=== PATIENT | female | born 1970 | race Caucasian/White ===

== ENCOUNTER 2021-03-22 14:37 | Emergency (ER) | payer OTHER, SELFPAY ==
[2021-03-22 15:03] VITALS: BP 153/90; PULSE 75; RESP 16; TEMP 37; O2SAT 97; BMI 25.4
--- NOTE | 2021-03-22 15:22 | ED.PSYCH ---
HPI - Psych General Chief Complaint: Psychiatric Symptoms Stated Complaint: Veritgo, Anxiety, SI, Slow Thinking and Speech Time Seen by Provider: 03/22/21 15:21 Source: patient and family Mode of arrival: Ambulatory Limitations: no limitations History of Present Illness HPI Narrative: Patient is a 50-year-old female who presents with a variety of complaints today. She has had mild vertigo ongoing for the last 3 weeks. She had a previous episode about 2 years ago. She says this episode started 3 weeks ago when she was in the garden. It is certainly worse when she turns her head. She went to physical therapy yesterday where they did an [place]a maneuver she thinks it helped a little. She does not take any medication for it because she is afraid of slowing her cognition. She thinks that the Paxil she is taking is interfering with her Related Data Home Medications Medication Instructions Recorded Confirmed levothyroxine 137 mcg tablet 112 mcg PO DAILY tab 08/07/20 03/07/21 calcium carbonate 200 mg calcium 200 mg PO DAILY tab 10/15/20 03/07/21 (500 mg) chewable tablet cholecalciferol (vitamin D3) 25 25 mcg PO DAILY 01/30/21 03/07/21 mcg (1,000 unit) capsule fluticasone propionate 50 1 spray INTRANASAL DAILY 01/30/21 03/07/21 mcg/actuation nasal spray,suspension multivitamin 1 tab PO DAILY 01/30/21 03/07/21 omega-3 fatty acids 1,000 mg 1,000 mg PO DAILY 01/30/21 03/07/21 capsule Previous Rx's Medication Instructions Recorded paroxetine HCl 10 mg tablet 10 mg PO QDAY #90 tab 07/29/20 bupropion HCl 100 mg tablet,12 hr 100 mg PO QAM #90 tab 10/25/20 sustained-release lamotrigine 25 mg tablet 50 mg PO DAILY #180 tab 10/25/20 zolpidem 5 mg tablet See Rx Instructions PO BEDTIME PRN 10/25/20 #180 tab MDD 10 lithium carbonate 300 mg capsule 300 mg PO DAILY #90 cap 01/30/21 lithium carbonate 150 mg capsule 300 mg PO BEDTIME #90 cap 02/11/21 Allergies Allergy/AdvReac Type Severity Reaction Status Date / Time No Known Drug Allergies Allergy Verified 03/07/21 08:47 Review of Systems Review of Systems ROS Unobtainable: All systems reviewed & are unremarkable except as noted in HPI and below Constitutional Constitutional: Denies chills, Denies fever(s), Denies lethargy and Denies weakness Eyes Eyes: Denies blurry vision and Denies diplopia ENT Ears, Nose, Mouth, and Throat: Denies change in voice, Reports vertigo, Reports dizziness, Denies neck pain and Denies sore throat Gastrointestinal Gastrointestinal: Denies abdominal pain, Denies change in bowel habits, Denies diarrhea, Denies nausea and Denies vomiting Musculoskeletal Musculoskeletal: Denies myalgias and Denies neck pain Neurologic Neurologic: Reports confusion, Reports vertigo, Reports dizziness, Reports memory loss and Denies weakness Psychiatric Psychiatric: Reports anxiety, Reports confusion, Reports memory loss and Reports panic attacks Patient History Medical History Hx of hiatal hernia Hypothyroid Iron deficiency anemia Surgical History History of Social History marital status: household members: spouse and children Smoking Status: Former smoker alcohol intake: current substance use type: does not use Smoking Status: Former smoker alcohol intake frequency: holidays/special occasions only Substance Use Type: does not use Exam Initial Vital Signs Initial Vital Signs: Vital Signs Temperature 98.6 F 03/22/21 15:03 Pulse Rate 75 03/22/21 15:03 Respiratory Rate 16 03/22/21 15:03 Blood Pressure 153/90 H 03/22/21 15:03 Pulse Oximetry 97 03/22/21 15:03 GENERAL: Tearful 50-year-old female HEENT: Head atraumatic,EOMI, pupils reactive, face symmetric, moist mucous membranes CARDIOVASCULAR: Regular rate and rhythm without murmurs, rubs or gallops. RESPIRATORY: Breath sounds equal bilaterally, no wheezes rales or rhonchi. ABDOMEN: Soft, nontender. Normoactive bowel sounds all 4 quadrants. No guarding or rebound. EXTREMITIES: Normal range of motion, no clubbing or edema. Neurovascularly intact NEUROLOGICAL: Alert and oriented x4.Normal gait and speech. Cranial nerves II through XII grossly intact. Good fvccea-qy-kpod, good kyha-uc-mcou, strength equal bilaterally, no dysarthria or aphasia, sensation in tact to soft touch bilaterally, no visual changes, no facial droop. Difficulty with 3 object memory test, able to count by sevens SKIN: Warm, dry, no laceration, no petechiae, no rashes or lesions. Scores NIH Stroke Scale Level of Conciousness: Alert, keenly responsive Ask month/age: Answers both questions correctly. Open/close eyes, close hand: Performs both tasks correctly Best gaze horizontal: Normal Visual izquierdo: No visual loss Facial palsy: Normal symetrical movement Left arm drift: No drift for full 10 sec Right arm drift: No drift for full 10 sec Left leg drift: No drift for full 5 sec Right leg drift: No drift for full 5 sec Limb ataxia: Absent Sensory on face/arms/legs: Normal, no sensory loss Best language: No aphasia, normal Dysarthria: Normal Extinction or inattention: No abnormality Total NIH Stroke scale score: 0 Course Orders Ordered: ED Orders 03/22/21 14:42 Consult to TOOL TECHNICIAN - Internist Medical Doctor Md Stat 03/22/21 15:48 CT angio head and neck Stat 03/22/21 16:02 Complete Blood Count AUTO DIFF Stat Comprehensive Metabolic Panel Stat Vital Signs Vital signs: Vital Signs - 8 hr 03/22/21 15:03 03/22/21 17:54 Temperature 98.6 F Pulse Rate 75 77 Respiratory Rate 16 16 Blood Pressure 153/90 H 140/90 Pulse Oximetry 97 100 MDM - Psych Lab Data Attestation: I reviewed the patient's lab results. Result diagrams: 03/22/21 16:02 03/22/21 16:02 Labs: Lab Results 03/22/21 03/22/21 Range/Units 16:02 16:02 WBC 9.0 (4.5-11.0) X10^3/uL RBC 4.77 (4.0-5.2) X10^6/uL Hgb 14.6 (12.0-16.0) g/dL Hct 42.3 (36-46) % MCV 88.6 (80-100) fL MCH 30.6 (26-34) PG MCHC 34.5 (30-36) % RDW 12.8 (11.6-14.8) % Plt Count 355 (150-400) X10^3/uL Neut % (Auto) 79.9 H (50-75) % Lymph % (Auto) 13.4 L (25-40) % [place] % (Auto) 5.3 (3-14) % Eos % (Auto) 1.0 L (2-4) % Baso % (Auto) 0.4 (0-2) % Neut # (Auto) 7200 H (9792-6073) /uL Lymph # (Auto) 1200 (1491-1986) /uL [place] # (Auto) 500 (0-900) /uL Eos # (Auto) 100 (0-450) /uL Baso # (Auto) 0 (0-100) /uL Sodium 141 (137-145) mmol/L Potassium 3.5 (3.4-5.1) mmol/L Chloride 106 (98-107) mmol/L Carbon Dioxide 25 (22-32) mmol/L BUN 6 L (7-17) mg/dL Creatinine 0.56 (0.52-1.04) mg/dL Estimated GFR > 60.0 (>60) mL/min BUN/Creatinine Ratio 10.7 (6-22) Glucose 135 H (70-100) mg/dL Calcium 9.5 (8.4-10.2) mg/dL Total Bilirubin 0.3 (0.2-1.3) mg/dL AST 36 (14-36) IU/L ALT 22 (<35) IU/L Alkaline Phosphatase 76 (38-126) U/L Total Protein 7.6 (6.3-8.2) g/dL Albumin 4.7 (3.5-5.0) g/dL Globulin 2.9 (1.7-4.1) g/dL Albumin/Globulin Ratio 1.6 (1.0-2.8) Imaging Data CTA - brain/neck: Radiologist's Impression: PROCEDURE: CT ANGIO HEAD AND NECK INDICATIONS: persistant dizzy TECHNIQUE: Pre-contrast 4.5 mm thick sections acquired from the foramen magnum to the vertex. After the administration of intravenous contrast, 1 mm thick sections acquired from the aortic arch through the [place] of [place]. Post-contrast 4.5 mm thick sections then re-acquired from the foramen magnum to the vertex. 3-dimensional gmhcmiq-ykdyabyqr-qatsaqfzqj (MIP) and/or volume rendering reformats were acquired of the central intracranial vasculature and neck separately. COMPARISON: None. FINDINGS: Image quality: Excellent. BRAIN: CSF spaces: Ventricles are normal in size and shape. Basal cisterns are patent. No extra-axial fluid collections. Brain: No midline shift. No intracranial bleeds or masses. Valle-white matter interface appears intact. Skull and face: Calvarium and facial bones appear intact, without suspicious lesions. Orbits appear normal. Sinuses: Mild mucosal thickening of the right greater than left maxillary sinuses. HEAD CT ANGIOGRAPHY: Anterior circulation: Intracranial internal carotid arteries are normal in size and flow. The flow within the paired anterior cerebral arteries is normal and symmetric. The flow within the middle cerebral arteries is normal and symmetric. The anterior communicating artery is seen. No aneurysms are seen. Posterior circulation: Visualized portions of the vertebral arteries demonstrate normal caliber, and join to form a normal appearing basilar artery. Flow within the posterior cerebral arteries is normal and symmetric. No aneurysms are seen. NECK CT ANGIOGRAPHY: Carotid system: The great vessels demonstrate a conventional anatomy as they arise from the aortic arch. The origins of the common carotid arteries appear patent. The common carotid arteries demonstrate normal caliber and courses. The bifurcation regions are both widely patent. There is very mild calcification and noncalcified atheromatous plaque at the proximal left internal carotid artery without evidence of flow-limiting stenosis, occlusion or other vascular abnormality. The internal carotid arteries demonstrate normal calibers and courses. Posterior circulation: The origins of the vertebral arteries both appear widely patent. The more superior extracranial portions of both vertebral arteries also demonstrate normal courses and calibers. They join to form a normal appearing basilar artery. Soft tissues: Visualized neck soft tissues demonstrate no suspicious abnormalities. Bones: No suspicious bony lesions. Reversal of the normal cervical lordosis. Multilevel degenerative changes of the spine. There is at least mild intervertebral disc space loss at C5-C6 and moderate intervertebral disc space loss at C6-C7. There is endplate degenerative changes and uncovertebral joint hypertrophy. There is mild spinal canal stenosis posterior to C5-C6 and C6-C7. There is mild neural foraminal stenosis at these levels. Visualized cervical spine appears normally aligned. IMPRESSION: No acute intracranial abnormality. No evidence of flow-limiting stenosis, occlusion, or other suspicious vascular abnormality within the intracranial or cervical vasculature. Moderate multilevel cervical spondylosis worse at C5-C6 and C6-C7. Dictated by: Romario Ngo D.O. on 03/22/2021 at 16:16 MDM Narrative Medical decision making narrative: Patient is extremely tearful and quite worried about her cognition. She feels like her medication may be causing her cognitive impairment she is extremely worried about early dementia. She is adamant about not taking any medication for her vertigo. She seems to be be tolerating the vertigo. She states that she has not had CT or imaging of her brain for any episodes of her vertigo. She is agreeable to CTs today but does not want medication. She was able to lay flat for CT angio with trochlea was negative. This time patient has calm down. I recommend that she continue tapering off her Paxil and speaking with tila arredondo who is managing that about different medication. She may need further testing in regards to have the dementia she is worried about or it may be medication related. Recommend that she follow up with ENT for chronic ongoing vertigo. Discharge Plan Departure Patient Disposition: Home Clinical Impression: Vertigo Instructions: DI for Vertigo Activity Restrictions/Additional Instructions: *You have been diagnosed with vertigo *What to do: At this time I recommend you seen ear nose and throat doctor for your ongoing vertigo. You will need to talk with her psychiatrist in regards to the Paxil this does need to be tapered off slowly over a couple of weeks. *Continue to take medications as directed *Follow up with your primary care provider in 2-3 days *Return to ER if you should have worsening dizziness, falling, weakness, numbness, tingling, persistent vomiting or any new, worsening or concerning symptoms Prescriptions: No Action zolpidem 5 mg tablet See Rx Instructions PO BEDTIME MDD 10 PRN (Reason: insomnia) Qty: 180 RF: 1 bupropion HCl [Wellbutrin SR] 100 mg tablet sustained-release 12 hr 100 mg PO QAM Qty: 90 RF: 1 lamotrigine [Lamictal] 25 mg tablet 50 mg PO DAILY Qty: 180 RF: 1 fluticasone propionate [Flonase Allergy Relief] 50 mcg/actuation spray,suspension 1 spray intranasal DAILY RF: 0 multivitamin Tablet 1 tab PO DAILY RF: 0 omega-3 fatty acids [Fish Oil Concentrate] 1,000 mg capsule 1,000 mg PO DAILY RF: 0 cholecalciferol (vitamin D3) 25 mcg (1,000 unit) capsule 25 mcg PO DAILY RF: 0 lithium carbonate 300 mg capsule 300 mg PO DAILY Qty: 90 RF: 1 Hold Instructions: trial of dose change levothyroxine [Synthroid] 137 mcg tablet 112 mcg PO DAILY RF: 0 paroxetine HCl [Paxil] 10 mg tablet 10 mg PO QDAY Qty: 90 RF: 2 lithium carbonate 150 mg capsule 300 mg PO BEDTIME Qty: 90 RF: 0 calcium carbonate [Tums] 200 mg calcium (500 mg) tablet,chewable 200 mg PO DAILY RF: 0 Referrals: Bj Pop MD [Physician] - Tennille Herron ARNP [Advanced Customizer] - Laci Bonilla MD [Primary Care Provider] -
--- NOTE | 2021-03-22 15:44 | PC.NURSE ---
Pt has multiple concerns which include vertigo, medication tapering, and most concerning to her a slowing of her mentation. Pt is slow to speak but is A&Ox3. Pt does not wish for medications to help her vertigo symptoms
--- NOTE | 2021-03-22 15:48 | DI.CT.S_ITS ---
PROCEDURE: CT ANGIO HEAD AND NECK INDICATIONS: persistant dizzy TECHNIQUE: Pre-contrast 4.5 mm thick sections acquired from the foramen magnum to the vertex. After the administration of intravenous contrast, 1 mm thick sections acquired from the aortic arch through the [place] of [place]. Post-contrast 4.5 mm thick sections then re-acquired from the foramen magnum to the vertex. 3-dimensional cknzmgq-vxdjxoxjx-qpyqpqtlpj (MIP) and/or volume rendering reformats were acquired of the central intracranial vasculature and neck separately. COMPARISON: None. FINDINGS: Image quality: Excellent. BRAIN: CSF spaces: Ventricles are normal in size and shape. Basal cisterns are patent. No extra-axial fluid collections. Brain: No midline shift. No intracranial bleeds or masses. Valle-white matter interface appears intact. Skull and face: Calvarium and facial bones appear intact, without suspicious lesions. Orbits appear normal. Sinuses: Mild mucosal thickening of the right greater than left maxillary sinuses. HEAD CT ANGIOGRAPHY: Anterior circulation: Intracranial internal carotid arteries are normal in size and flow. The flow within the paired anterior cerebral arteries is normal and symmetric. The flow within the middle cerebral arteries is normal and symmetric. The anterior communicating artery is seen. No aneurysms are seen. Posterior circulation: Visualized portions of the vertebral arteries demonstrate normal caliber, and join to form a normal appearing basilar artery. Flow within the posterior cerebral arteries is normal and symmetric. No aneurysms are seen. NECK CT ANGIOGRAPHY: Carotid system: The great vessels demonstrate a conventional anatomy as they arise from the aortic arch. The origins of the common carotid arteries appear patent. The common carotid arteries demonstrate normal caliber and courses. The bifurcation regions are both widely patent. There is very mild calcification and noncalcified atheromatous plaque at the proximal left internal carotid artery without evidence of flow-limiting stenosis, occlusion or other vascular abnormality. The internal carotid arteries demonstrate normal calibers and courses. Posterior circulation: The origins of the vertebral arteries both appear widely patent. The more superior extracranial portions of both vertebral arteries also demonstrate normal courses and calibers. They join to form a normal appearing basilar artery. Soft tissues: Visualized neck soft tissues demonstrate no suspicious abnormalities. Bones: No suspicious bony lesions. Reversal of the normal cervical lordosis. Multilevel degenerative changes of the spine. There is at least mild intervertebral disc space loss at C5-C6 and moderate intervertebral disc space loss at C6-C7. There is endplate degenerative changes and uncovertebral joint hypertrophy. There is mild spinal canal stenosis posterior to C5-C6 and C6-C7. There is mild neural foraminal stenosis at these levels. Visualized cervical spine appears normally aligned. IMPRESSION: No acute intracranial abnormality. No evidence of flow-limiting stenosis, occlusion, or other suspicious vascular abnormality within the intracranial or cervical vasculature. Moderate multilevel cervical spondylosis worse at C5-C6 and C6-C7. Dictated by: Romario Ngo D.O. on 03/22/2021 at 16:16 Approved by: Romario Ngo D.O. on 03/22/2021 at 16:25
[2021-03-22 16:26] LABS: Add Manual Diff / Slide Review NO; Basophils Absolute Auto 0 /uL (0-100); Basophils Percent Auto 0.4 % (0-2); Eosinophils Absolute Auto 100 /uL (0-450); Hematocrit 42.3 % (36-46); Hemoglobin 14.6 g/dL (12.0-16.0); Lymphocytes Absolute Auto 1200 /uL (1100-4500); Lymphocytes Percent Auto 13.4 % (25-40); Mean Corpuscular HGB Conc 34.5 % (30-36); Mean Corpuscular Hemoglobin 30.6 PG (26-34); Mean Corpuscular Volume 88.6 fL (80-100); Monocytes Absolute Auto 500 /uL (0-900); Monocytes Percent Auto 5.3 % (3-14); Neutrophils Absolute Auto 7200 /uL (1500-7000); Neutrophils Percent Auto 79.9 % (50-75); Platelet Count 355 X10^3/uL (150-400); Red Blood Cell Count 4.77 X10^6/uL (4.0-5.2); Red Cell Distribution Width 12.8 % (11.6-14.8)
[2021-03-22 16:27] LABS: Alanine Aminotransferase 22 IU/L (<35); Albumin 4.7 g/dL (3.5-5.0); Albumin Globulin Ratio 1.6 (1.0-2.8); Alkaline Phosphatase 76 U/L (38-126); Aspartate Aminotransferase 36 IU/L (14-36); BUN Creatinine Ratio 10.7 (6-22); Bilirubin Total 0.3 mg/dL (0.2-1.3); Blood Urea Nitrogen 6 mg/dL (7-17); Calcium 9.5 mg/dL (8.4-10.2); Carbon Dioxide 25 mmol/L (22-32); Chloride 106 mmol/L (98-107); Estimated Glomerular Filt Rate > 60.0 mL/min (>60); Globulin 2.9 g/dL (1.7-4.1); Glucose 135 mg/dL (70-100); HEMOLYSIS 31 (0-50); Potassium 3.5 mmol/L (3.4-5.1); Sodium 141 mmol/L (137-145); Total Protein 7.6 g/dL (6.3-8.2)
--- NOTE | 2021-03-22 17:44 | CM.SWNOTE ---
LIQUOR BRIDGE OPERATOR HELPER note LIQUOR BRIDGE OPERATOR HELPER consult placed during triage. LIQUOR BRIDGE OPERATOR HELPER staffed with ED Provider Dr. Norton and it was decided that LIQUOR BRIDGE OPERATOR HELPER consult is not needed for patient during this visit. OSCAR Lemus
[2021-03-22 17:54] VITALS: BP 140/90; PULSE 77; RESP 16; O2SAT 100
== END 2021-03-22 17:51 | disposition home or self-care (01) ==
PROVIDERS: Emergency Medicine; Emergency Provider Emergency Medicine; PCP Family Medicine
DX: R42 Dizziness and giddiness (principal); Z79.01 Long term (current) use of anticoagulants
CPT/HCPCS: 36415; 70496; 70498; 80053; 85025; 99284; Q9967

== ENCOUNTER 2025-03-29 17:18 | Observation (INO) | payer OTHER, SELFPAY ==
[2025-03-29] VITALS (18 sets, daily range): BP systolic 122–156; BP diastolic 60–94; PULSE 41–115; RESP 15–24; TEMP 36.7–37.1; O2SAT 97–100; BMI 25.5; BMI 26.2
--- NOTE | 2025-03-29 17:32 | EKG_ITS ---
[place] [id number] [place] [address] Test Date: 2025-03-29 Pat Name: Brooklyn Rosen Department: [facility] Room: Gender: Female Crab Picker: : [phone] Requested By: Order Number: [id number] Reading MD: Tereso Kraft Measurements Intervals [place] Rate: 78 P: 41 NV: 142 QRS: 57 QRSD: 84 T: 77 QT: 396 QTc: 451 Interpretive Statements Sinus rhythm with frequent premature ventricular complexes in a pattern of bigeminy Electronically Signed On 03-30-2025 19:08:11 PDT by Tereso Kraft
--- NOTE | 2025-03-29 17:35 | DI.RAD.S_ITS ---
PROCEDURE: XR CHEST 1V INDICATIONS: Chest Pain TECHNIQUE: One view of the chest was acquired. COMPARISON: None. FINDINGS: Surgical changes and devices: None. Lungs and pleura: Lungs are clear. No pleural effusions or pneumothorax. Mediastinum: Mediastinal contours appear normal. Heart size is normal. Bones and chest wall: No suspicious bony lesions. Overlying soft tissues appear unremarkable. IMPRESSION: No acute cardiopulmonary abnormality is seen. No focal consolidation. Dictated by: Erik Yost M.D. on 03/29/2025 at 18:42 Approved by: Erik Yost M.D. on 03/29/2025 at 18:42
[2025-03-29 18:26] LABS: Add Manual Diff / Slide Review NO; Basophils Absolute Auto 100 /uL (0-100); Basophils Percent Auto 0.6 % (0-2); Eosinophils Absolute Auto 200 /uL (0-450); Eosinophils Percent Auto 1.7 % (2-4); Hematocrit 40.6 % (36-46); Lymphocytes Absolute Auto 1800 /uL (1100-4500); Lymphocytes Percent Auto 19.4 % (25-40); Mean Corpuscular HGB Conc 34.4 % (30-36); Mean Corpuscular Volume 87.1 fL (80-100); Monocytes Absolute Auto 600 /uL (0-900); Monocytes Percent Auto 6.2 % (3-14); Neutrophils Absolute Auto 6600 /uL (1500-7000); Neutrophils Percent Auto 72.1 % (50-75); Platelet Count 268 X10^3/uL (150-400); Red Blood Cell Count 4.66 X10^6/uL (4.0-5.2); Red Cell Distribution Width 12.3 % (11.6-14.8); White Blood Cell Count 9.2 X10^3/uL (4.5-11.0)
[2025-03-29 18:28] LABS: INR 0.9 (0.9-1.3); Prothrombin Time 10.7 SECONDS (9.4-12.5)
[2025-03-29 18:31] LABS: PTT Partial Thromboplastin Tim 35 SECONDS (25.1-36.5)
[2025-03-29 18:33] LABS: Alanine Aminotransferase 24 IU/L (<35); Albumin 4.2 g/dL (3.5-5.0); Albumin Globulin Ratio 1.5 (1.0-2.8); Alkaline Phosphatase 75 U/L (38-126); Aspartate Aminotransferase 31 IU/L (14-36); BUN Creatinine Ratio 20.3 (6-22); Bilirubin Total 0.5 mg/dL (0.2-1.3); Blood Urea Nitrogen 14 mg/dL (7-17); Carbon Dioxide 23 mmol/L (22-32); Chloride 106 mmol/L (98-107); Creatine Kinase 65 U/L (30-135); Estimated Glomerular Filt Rate > 60 mL/min (>60); Globulin 2.8 g/dL (1.7-4.1); Glucose 122 mg/dL (70-99); HEMOLYSIS 41 (0-50); Lipase 214 U/L (23-300); Magnesium 1.9 mg/dL (1.6-2.3); Potassium 3.9 mmol/L (3.4-5.1); Sodium 139 mmol/L (137-145)
[2025-03-29 18:44] LABS: NT-proBNP (BNP-Adult 18+) 423 pg/mL (<125); Troponin I < 0.012 ng/mL (0.01-0.034)
[2025-03-29 19:34] LABS: Lithium 0.3 mmol/L (0.6-1.2)
--- NOTE | 2025-03-29 20:35 | ED.ARRPALP ---
HPI - Arrhythmia/Palpitations General Chief Complaint: Arrhythmia/Palpitations Stated Complaint: Abnormal EKG, SOB, Heart Flutters Time Seen by Provider: 03/29/25 20:33 Source: patient, RN notes reviewed and old records reviewed Mode of arrival: Ambulatory Limitations: no limitations History of Present Illness HPI narrative: 54-year-old female with psychiatric history on lithium complaint of shortness of breath and palpitations of the heart was seen for bradycardia at would be and with primary care a few weeks ago. Patient states she was had some increased shortness of breath, felt lightheaded she was felt like she might pass out but has not had any syncope. She can feel palpitations frequently and states it is more intense than it was over the last 3 weeks. She states was 1st noticed after an iron infusion her pulse ox was not picking up her heart rate and was found to be having PVCs in a bigeminal rate. She denies any chest pain or pressure. No syncope. No fevers or chills. No abdominal back or flank pain. No nausea or vomiting. No new swelling in extremities. She is on lithium has had her dose decreased, she takes Wellbutrin, Lamictal, Paxil, Ambien Synthroid daily. They have been decreasing some of her medications slowly over time. She did not take any medications for hypertension, dyslipidemia or diabetes. She was had prior C-sections but no other cardiac interventions or surgeries. No allergies to meds. No tobacco, rare alcohol, no recreational drugs. Dr. Aranda is her primary care physician. Patient's primary care is Dr. Heard. Patient has a follow up on May [address] Hoyt with [facility]. Related Data Home Medications Medication Instructions Recorded Confirmed cholecalciferol (vitamin D3) 25 25 mcg PO DAILY 01/30/21 03/30/25 mcg (1,000 unit) capsule fluticasone propionate 50 1 spray intranasal DAILY 01/30/21 03/29/25 mcg/actuation nasal spray,suspension (Flonase Allergy Relief) multivitamin 1 tab PO DAILY 01/30/21 03/30/25 omega-3 fatty acids 1,000 mg 1,000 mg PO DAILY 01/30/21 03/30/25 capsule (Fish Oil Concentrate) levothyroxine 125 mcg capsule 125 mcg PO DAILY 09/24/21 03/29/25 melatonin 1 mg tablet 3 mg PO BEDTIME 12/03/21 03/29/25 Previous Rx's Medication Instructions Recorded bupropion HCl 100 mg tablet,12 hr 50 mg (1/2 x 100 mg) PO DAILY #60 12/21/24 sustained-release ea lamotrigine 25 mg tablet (Lamictal) 50 mg (2 x 25 mg) PO DAILY #180 01/09/25 tabs lithium carbonate 150 mg capsule 150 mg PO QPM #90 caps 01/09/25 lithium carbonate 300 mg capsule 300 mg PO QAM #90 caps 01/09/25 paroxetine HCl 10 mg tablet 10 mg PO DAILY #7 tabs 01/09/25 zolpidem 5 mg tablet 5 mg PO BEDTIME PRN insomnia #90 01/09/25 tabs paroxetine HCl 10 mg/5 mL oral 2.5 mg (1.25 mL) PO DAILY #250 mL 01/12/25 suspension Allergies Allergy/AdvReac Type Severity Reaction Status Date / Time No Known Drug Allergies Allergy Verified 03/29/23 10:54 Review of Systems Review of Systems ROS Unobtainable: All systems reviewed & are unremarkable except as noted in HPI and below Patient History Medical History Hx of hiatal hernia Iron deficiency anemia Hypothyroid Surgical History History of Social History marital status: household members: spouse and children Smoking Status: Never smoker alcohol intake: current substance use type: does not use Smoking Status: Never smoker alcohol intake frequency: holidays/special occasions only Exam Narrative Exam Narrative: GENERAL: Alert and oriented x three, female in mild distress. Patient was seated chair at the bedside in no acute distress. HEENT: Head normocephalic, atraumatic, EOMI, pupils reactive, face symmetric, moist mucous membranes NECK: Supple, full range of motion CARDIOVASCULAR: Patient has a regular but bigeminal beat, rate and rhythm without murmurs, rubs or gallops. No JVD. No edema bilateral lower extremities. RESPIRATORY: Breath sounds equal bilaterally, no wheezes rales or rhonchi. ABDOMEN: Soft, nontender. Normoactive bowel sounds all 4 quadrants. No guarding or rebound, rigidity, no mass : No CVA tenderness EXTREMITIES: Normal range of motion, no clubbing or edema. Neurovascularly intact NEUROLOGICAL: Cranial nerves II through XII grossly intact. Moving all extremities SKIN: Warm, dry, no petechiae, no rashes or lesions. Initial Vital Signs Initial Vital Signs: Vital Signs Temperature 98.7 F 03/29/25 17: Pulse Rate 41 L 03/29/25 17: Respiratory Rate 16 03/29/25 17: Blood Pressure 156/74 H 03/29/25 17:25 Pulse Oximetry 97 03/29/25 17:25 Oxygen Delivery Method Room Air 03/29/25 17:25 Course Orders Ordered: Acetaminophen (Acetaminophen 325 Mg Tablet) 650 mg PO Q6H PRN PRN Reason: Fever/Mild Pain (1-3) Bupropion HCl (Bupropion Sr 100 Mg Tab) 50 mg PO DAILY [facility] Calcium Carbonate (Calcium Carbonate 500 Mg Tab) 500 mg PO TID PRN PRN Reason: Heartburn Diazepam (Diazepam 10 Mg/2 Ml Syringe) 5 mg IV Q6HR PRN PRN Reason: seizure Fish Oil (Fish Oil 1,000 Mg Capsule) 1,000 mg PO DAILY [facility] Fluticasone Propionate (Fluticasone 120 [place]/16 Gm [place].Susp) 1 spray NASAL DAILY [facility] Lamotrigine (Lamotrigine 100 Mg Tablet) 50 mg PO DAILY [facility] Levothyroxine Sodium (Levothyroxine 125 Mcg Tablet) 125 mcg PO 0600 [facility] [place] Carbonate ([place] 150 Mg Ir Capsule) 150 mg PO QPM BRDA [place] Carbonate ([place] 150 Mg Ir Capsule) 300 mg PO DAILY [facility] Melatonin (Melatonin 3 Mg Tablet) 3 mg PO BEDTIME [facility] Last Admin: 03/30/25 01:56 Dose: 3 mg Documented By: Multivitamins (Multivitamin 1 Tablet) 1 tab PO DAILY [facility] Naloxone HCl (Naloxone 0.4 Mg/Ml Vial) 0.2 mg IV Q2MIN PRN PRN Reason: Opiate Reversal Non-Formulary Medication (Paroxetine Hcl) 2.5 mg PO DAILY [facility] Paroxetine HCl (Paroxetine 20 Mg Tablet) 10 mg PO DAILY [facility] Vitamin D (Cholecalciferol (Vitamin D3) 1,000 Unit Tablet) 1,000 unit PO DAILY [facility] Zolpidem Tartrate (Zolpidem 5 Mg Tablet) 5 mg PO BEDTIME PRN PRN Reason: insomnia Last Admin: 03/30/25 01:56 Dose: 5 mg Documented By: YOSSI Discontinued Medications Aspirin (Aspirin 81 Mg Chew Tab) 324 mg PO NOW ONE Stop: 03/29/25 17:36 Last Admin: 03/29/25 18:46 Dose: Not Given Documented By: TANIKA Sodium Chloride (Normal Saline 0.9%) 1,000 mls @ 1,000 mls/hr IV BOLUS ONE Stop: 03/29/25 21:49 Last Infusion: 03/29/25 23:09 Dose: Infused Documented By: Admin: 03/29/25 21:20 Dose: 1,000 mls/hr Documented By: INDIRA Vital Signs Vital signs: Vital Signs - 8 hr 03/29/25 20:00 03/29/25 20:01 03/29/25 20:01 Pulse Rate 106 H 74 Respiratory Rate 22 Blood Pressure 136/64 Pulse Oximetry 98 98 03/29/25 20:30 03/29/25 20:31 03/29/25 20:31 Pulse Rate 97 H 112 H Respiratory Rate Blood Pressure 134/65 Pulse Oximetry 99 99 03/29/25 21:06 03/29/25 21:30 03/29/25 22:00 Pulse Rate 112 H 94 H 95 H Respiratory Rate 16 Blood Pressure Pulse Oximetry 99 100 03/29/25 22:30 Pulse Rate 102 H Respiratory Rate 15 Blood Pressure Pulse Oximetry MDM - Arrhythmia/Palpitations Lab Data 03/29/25 18:14 03/29/25 18:14 Labs: Lab Results 03/29/25 Range/Units 18:14 WBC 9.2 (4.5-11.0) X10^3/uL RBC 4.66 (4.0-5.2) X10^6/uL Hgb 14.0 (12.0-16.0) g/dL Hct 40.6 (36-46) % MCV 87.1 (80-100) fL MCH 30.0 (26-34) PG MCHC 34.4 (30-36) % RDW 12.3 (11.6-14.8) % Plt Count 268 (150-400) X10^3/uL Neut % (Auto) 72.1 (50-75) % Lymph % (Auto) 19.4 L (25-40) % [place] % (Auto) 6.2 (3-14) % Eos % (Auto) 1.7 L (2-4) % Baso % (Auto) 0.6 (0-2) % Neut # (Auto) 6600 (4391-6989) /uL Lymph # (Auto) 1800 (4044-6724) /uL [place] # (Auto) 600 (0-900) /uL Eos # (Auto) 200 (0-450) /uL Baso # (Auto) 100 (0-100) /uL PT 10.7 (9.4-12.5) SECONDS INR 0.9 (0.9-1.3) APTT 35 (25.1-36.5) SECONDS D-Dimer < 215 (<500) ng/ml Sodium 139 (137-145) mmol/L Potassium 3.9 (3.4-5.1) mmol/L Chloride 106 (98-107) mmol/L Carbon Dioxide 23 (22-32) mmol/L BUN 14 (7-17) mg/dL Creatinine 0.69 (0.52-1.04) mg/dL Estimated GFR > 60 (>60) mL/min BUN/Creatinine Ratio 20.3 (6-22) Glucose 122 H (70-99) mg/dL Calcium 9.0 (8.4-10.2) mg/dL Magnesium 1.9 (1.6-2.3) mg/dL Total Bilirubin 0.5 (0.2-1.3) mg/dL AST 31 (14-36) IU/L ALT 24 (<35) IU/L Alkaline Phosphatase 75 (38-126) U/L Total Creatine Kinase 65 (30-135) U/L Troponin I < 0.012 (0.01-0.034) ng/mL NT-Pro-B Natriuret Pep 423 H (<125) pg/mL Total Protein 7.0 (6.3-8.2) g/dL Albumin 4.2 (3.5-5.0) g/dL Globulin 2.8 (1.7-4.1) g/dL Albumin/Globulin Ratio 1.5 (1.0-2.8) Lipase 214 (23-300) U/L TSH 0.842 (0.47-4.68) uIU/mL [place] 0.3 L (0.6-1.2) mmol/L ECG Data Attestation: I personally reviewed and interpreted this ECG as follows: Prior ECG tracings: available for review Interpretation: Sinus rhythm for frequent PVCs almost bigeminal in nature, rate of 78 NE 142 QRS 84 QTC of 451. Patient has prior EKG from 03/05/2025 has similar somewhat appearing pattern although no quite as frequent PVCs but it was almost bigeminal on that 1 as well. MDM Narrative Medical decision making narrative: EKG sinus rhythm frequent PVCs in a bigeminal pattern patient has prior from February of 2025 has a somewhat similar appearance. Labs show normal white count hemoglobin and platelets, coags are normal electrolytes are normal glucose is 122, troponins less than 0.012 with a BNP of 423. [place] level is 0.3 Dimer is negative. TSH is normal Chest x-ray shows no acute process no focal consolidation. Patient has a L of fluids. Spoke with Cardiology, Dr. Weinberg at [id number]: Discussed findings from today patient was frequent bigeminal PVCs and sometimes even some extra beats. He feels it would be appropriate to keep patient for observation for echo telemetry monitoring to evaluate for any myocarditis and if negative can follow up outpatient. Can call to follow up with any additional questions or concerns or if changes on echo. Discussed with the patient she is agreeable for observation. Other than palpitation she was currently asymptomatic. Spoke with Dr. Villanueva, tele hospitalist at [id number], discussed recommendations from Cardiology patient has persistent bigeminal rhythm but also additional extra beats/PVCs. Plan for observation overnight, echo in the morning. Discharge Plan Departure Patient Disposition: Admitted as Observation Clinical Impression: Bigeminal rhythm Admit Date/Time: 03/29/25 22:59 Admit Provider: Danny Villanueva
[2025-03-29 21:03] LABS: D Dimer < 215 ng/ml (<500)
[2025-03-29] MEDS: SODIUM CHLORIDE 0.9% 1,000 ML 1000 ML IV (21:20)
[2025-03-29 21:49] LABS: Thyroid Stimulating Hormone 0.842 uIU/mL (0.47-4.68)
[2025-03-30] MEDS: MELATONIN 3 MG TABLET PO (01:56)
[2025-03-30] MEDS: ZOLPIDEM 5 MG TABLET PO (01:56)
--- NOTE | 2025-03-30 04:26 | PC.ADMIT ---
[email or web address] Admission Note: Admitted at 23:15, transferred by wheelchair from the ED. A/O x 4, Independent in room. Reports palpitations and mild shortness of breath, declines oxygen. Denies chest pain, dizziness, nausea. Spouse present, brought home medications and was instructed to take them down to his car. Patient kept removing tele leads and placing them on her stomach. Meds reconciled, patient reports that she takes 3/4 tab of melatonin and 3/4 tab ambien. Reports that with other medications she cuts the dose in half, quarter tab, or less than quarter tab. Reported to Dr. Villanueva. Echo ordered for morning. The patient,Brooklyn Rosen,54 y/o, was given written information regarding hospital policies, unit procedures and contact persons. Patient's smoking status: Never smoker. Vital Signs - 8 hr 03/29/25 20:30 03/29/25 20:31 03/29/25 20:31 Temperature Pulse Rate 97 H 112 H Respiratory Rate Blood Pressure 134/65 Pulse Oximetry 99 99 Oxygen Delivery Method Oxygen Flow Rate 03/29/25 21:06 03/29/25 21:30 03/29/25 22:00 Temperature Pulse Rate 112 H 94 H 95 H Respiratory Rate 16 Blood Pressure Pulse Oximetry 99 100 Oxygen Delivery Method Oxygen Flow Rate 03/29/25 22:30 03/29/25 23:03 03/29/25 23:05 Temperature Pulse Rate 102 H 113 H Respiratory Rate 15 18 Blood Pressure Pulse Oximetry Oxygen Delivery Method Room Air Oxygen Flow Rate 03/29/25 23:15 Temperature 98.0 F Pulse Rate 80 Respiratory Rate 18 Blood Pressure 125/83 Pulse Oximetry 99 Oxygen Delivery Method Oxygen Flow Rate 0
--- NOTE | 2025-03-30 04:38 | PM.HP.1 ---
History of Present Illness History of Present Illness Chief complaint: Abnormal EKG, SOB, Heart Flutters Narrative: 54-year-old female with past medical history of hypothyroidism, insomnia, and psychiatric illness on lithium and presents with shortness of breath and palpitation. Per the patient's report over the last few weeks the patient started to have the symptoms. The patient was seen by her PCP and had an EKG done. Per report the patient was found to have PVCs and general rhythm. The patient however at that time was asymptomatic and was scheduled to see Dr. Hoyt with [facility] cardiology on May 18, 2025. However the patient started to have these pressure palpitation, shortness of breath over the last few days. The patient decided to come in today since her symptom worsens. Patient denies any chest pain, fever, chills, nausea, vomiting, diarrhea, coughing, dysuria or syncope. In the emergency room, the patient was hemodynamically stable. However on telemetry and EKG that shows sinus rhythm with very frequent PVCs almost bigeminal in nature. Comparing to EKG done on March 05, 2025 the pattern seems very similar although the PVC seems more frequent today. Her ER physician did check a lithium level which is back at 0.3. D-dimer is negative. TSH normal. Labs were relatively benign with also troponin less than 0.012. BNP 423. Chest x-ray shows no acute finding or signs of volume overload. The patient was given a liter of IV fluid. Cardiology Dr. Marinelli was consulted and recommended that we keep the patient here to monitor on telemetry overnight and obtain an echocardiogram in the morning evaluating for any signs of cardiomyopathy. If the patient has no event overnight on telemetry and is hemodynamically stable with relatively normal echocardiogram the patient can be discharged home and to follow-up with the appointment she has with cardiology on May 18, 2025. However if there is any event or abnormality in echocardiogram or telemetry can consider reconsulting cardiology in the morning. [facility] Medical History Hx of hiatal hernia Iron deficiency anemia Hypothyroid Surgical History History of Social History marital status: household members: spouse and children Smoking Status: Never smoker alcohol intake: current substance use type: does not use Meds Home Medications and Allergies Home Medications Medication Instructions Recorded Confirmed Type cholecalciferol (vitamin D3) 25 25 mcg PO DAILY 01/30/21 03/30/25 History mcg (1,000 unit) capsule fluticasone propionate 50 1 spray intranasal DAILY 01/30/21 03/29/25 History mcg/actuation nasal spray,suspension (Flonase Allergy Relief) multivitamin 1 tab PO DAILY 01/30/21 03/30/25 History omega-3 fatty acids 1,000 mg 1,000 mg PO DAILY 01/30/21 03/30/25 History capsule (Fish Oil Concentrate) levothyroxine 125 mcg capsule 125 mcg PO DAILY 09/24/21 03/29/25 History melatonin 1 mg tablet 3 mg PO BEDTIME 12/03/21 03/29/25 History bupropion HCl 100 mg tablet,12 hr 50 mg (1/2 x 100 mg) PO DAILY #60 12/21/24 03/29/25 Rx sustained-release ea lamotrigine 25 mg tablet (Lamictal) 50 mg (2 x 25 mg) PO DAILY #180 01/09/25 03/29/25 Rx tabs lithium carbonate 150 mg capsule 150 mg PO QPM #90 caps 01/09/25 03/29/25 Rx lithium carbonate 300 mg capsule 300 mg PO QAM #90 caps 01/09/25 03/29/25 Rx paroxetine HCl 10 mg tablet 10 mg PO DAILY #7 tabs 01/09/25 03/29/25 Rx zolpidem 5 mg tablet 5 mg PO BEDTIME PRN insomnia #90 01/09/25 03/29/25 Rx tabs paroxetine HCl 10 mg/5 mL oral 2.5 mg (1.25 mL) PO DAILY #250 mL 01/12/25 03/29/25 Rx suspension Allergies Allergy/AdvReac Type Severity Reaction Status Date / Time No Known Drug Allergies Allergy Verified 03/29/23 10:54 Review of Systems Review of Systems Narrative: Physical Exam: GENERAL: The patient is not in any acute distressed. Awake and alert. HEENT: Nonicteric sclerae, PERRLA, EOMI. Oropharynx clear. Moist mucous membranes. Conjunctivae appear well perfused. HEART: Regular rate and rhythm without murmurs. No lower extremities edema. LUNGS: Clear to auscultation bilaterally. No wheezing, crackles or rhonchi ABDOMEN: Soft, positive bowel sounds, nontender. SKIN: No rash, no excessive bruising, petechiae, or purpura. NEUROLOGIC: AxO x 3. Cranial nerves II-XII intact without motor/sensory deficit. ROS: Yes All systems reviewed with the patient and are negative except as otherwise documented Exam Vital Signs (past 8 hours): - 03/29/25 21:06 03/29/25 21:30 03/29/25 22:00 Temperature Pulse Rate 112 H 94 H 95 H Respiratory Rate 16 Blood Pressure Pulse Oximetry 99 100 Oxygen Delivery Method Oxygen Flow Rate 03/29/25 22:30 03/29/25 23:03 03/29/25 23:05 Temperature Pulse Rate 102 H 113 H Respiratory Rate 15 18 Blood Pressure Pulse Oximetry Oxygen Delivery Method Room Air Oxygen Flow Rate 03/29/25 23:15 Temperature 98.0 F Pulse Rate 80 Respiratory Rate 18 Blood Pressure 125/83 Pulse Oximetry 99 Oxygen Delivery Method Oxygen Flow Rate 0 Oxygen Delivery Method Room Air Oxygen Flow Rate 0 Objective Labs 03/29/25 18:14 03/29/25 18:14 Labs: Laboratory Results - last 24 hr 03/29/25 18:14 WBC 9.2 RBC 4.66 Hgb 14.0 Hct 40.6 MCV 87.1 MCH 30.0 MCHC 34.4 RDW 12.3 Plt Count 268 Neut % (Auto) 72.1 Lymph % (Auto) 19.4 L [place] % (Auto) 6.2 Eos % (Auto) 1.7 L Baso % (Auto) 0.6 Neut # (Auto) 6600 Lymph # (Auto) 1800 [place] # (Auto) 600 Eos # (Auto) 200 Baso # (Auto) 100 PT 10.7 INR 0.9 APTT 35 D-Dimer < 215 Sodium 139 Potassium 3.9 Chloride 106 Carbon Dioxide 23 BUN 14 Creatinine 0.69 Estimated GFR > 60 BUN/Creatinine Ratio 20.3 Glucose 122 H Calcium 9.0 Magnesium 1.9 Total Bilirubin 0.5 AST 31 ALT 24 Alkaline Phosphatase 75 Total Creatine Kinase 65 Troponin I < 0.012 NT-Pro-B Natriuret Pep 423 H Total Protein 7.0 Albumin 4.2 Globulin 2.8 Albumin/Globulin Ratio 1.5 Lipase 214 TSH 0.842 [place] 0.3 L Assessment & Plan Assessment & Plan narrative: Frequent PVCs with bigeminal pattern. Admit the patient to medical telemetry under observation. The patient will be symptomatic from this rhythm. However the patient remains hemodynamically stable. Cardiology Dr. Marinelli was consulted and recommended that we keep the patient here to monitor on telemetry overnight and obtain an echocardiogram in the morning evaluating for any signs of cardiomyopathy. If the patient has no event overnight on telemetry and is hemodynamically stable with relatively normal echocardiogram the patient can be discharged home and to follow-up with the appointment she has with cardiology on May 18, 2025. However if there is any event or abnormality in echocardiogram or telemetry can consider reconsulting cardiology in the morning. TSH normal. Psychiatric disorder. Resume home medication including lithium. Of note lithium level was low at 0.3, the patient states that she been on this for 30 years and has always take a low dose and her level is normally low. Patient will need to follow-up with mental health for discharge. Hypothyroidism. Resume home medication TSH normal. Insomnia. Resume home melatonin and Ambien. DVT prophylaxis SCDs due to observational status. CODE STATUS full code. Disposition likely home in 1 to 2 days - As the provider of this telehealth evaluation, requested by the patient's evaluating physician, I attest that I introduced myself to the patient, provided my credentials and determined that telemedicine via a real-time, 2 way interactive audio and video platform is an appropriate and effective means of providing this service. - I reviewed the patient's chart and had a discussion with the member of the patient's treatment team. - The patient and I mutually agreed with continuation of this evaluation via telemedicine. The patient consented for the telemedicine evaluation. - This virtual encounter was taken place from [place] by Dr. Danny Villanueva. The patient was evaluated at [facility]. The encounter was approximately 35 minutes. The nurse was present during the entire time of the encounter and was able to move the stethoscope in appropriate directions. Time-Based Coding :: [TOTAL MINUTES] spent with patient and on the chart (including review of chart, obtaining history, exam, reviewing outside data, placing orders, documenting exam and treatment plan, and counseling patient) on [DATE].
[2025-03-30 05:00] VITALS: BP 110/69; PULSE 77; RESP 24; TEMP 37.2; O2SAT 98
[2025-03-30 06:10] LABS: Alanine Aminotransferase 20 IU/L (<35); Albumin 3.6 g/dL (3.5-5.0); Albumin Globulin Ratio 1.4 (1.0-2.8); Alkaline Phosphatase 61 U/L (38-126); Aspartate Aminotransferase 24 IU/L (14-36); BUN Creatinine Ratio 13.8 (6-22); Bilirubin Total 0.5 mg/dL (0.2-1.3); Blood Urea Nitrogen 8 mg/dL (7-17); Calcium 8.7 mg/dL (8.4-10.2); Carbon Dioxide 25 mmol/L (22-32); Chloride 110 mmol/L (98-107); Estimated Glomerular Filt Rate > 60 mL/min (>60); Globulin 2.5 g/dL (1.7-4.1); Glucose 97 mg/dL (70-99); HEMOLYSIS < 15 (0-50); Potassium 4.1 mmol/L (3.4-5.1); Sodium 139 mmol/L (137-145); Total Protein 6.1 g/dL (6.3-8.2)
[2025-03-30] MEDS: LEVOTHYROXINE 125 MCG TABLET PO (06:14)
[2025-03-30 06:16] LABS: Add Manual Diff / Slide Review NO; Basophils Absolute Auto 100 /uL (0-100); Basophils Percent Auto 0.6 % (0-2); Eosinophils Absolute Auto 200 /uL (0-450); Eosinophils Percent Auto 2.1 % (2-4); Hematocrit 39.2 % (36-46); Hemoglobin 13.4 g/dL (12.0-16.0); Lymphocytes Absolute Auto 1500 /uL (1100-4500); Lymphocytes Percent Auto 19.1 % (25-40); Mean Corpuscular HGB Conc 34.2 % (30-36); Mean Corpuscular Hemoglobin 29.8 PG (26-34); Mean Corpuscular Volume 87.2 fL (80-100); Monocytes Absolute Auto 700 /uL (0-900); Monocytes Percent Auto 9.2 % (3-14); Neutrophils Absolute Auto 5600 /uL (1500-7000); Platelet Count 240 X10^3/uL (150-400); Red Blood Cell Count 4.49 X10^6/uL (4.0-5.2); Red Cell Distribution Width 12.4 % (11.6-14.8); White Blood Cell Count 8.1 X10^3/uL (4.5-11.0)
--- NOTE | 2025-03-30 07:37 | PC.NURSE ---
pt had order for liquid paxil and also a tablet form. She doesn't take the tablet form. Liquid medication sent to pharmacy and d/c tablet form.Pharmacy to bring med up soon.
[2025-03-30] MEDS: buPROPion SR 100 MG TAB 50 MG PO (08:36)
[2025-03-30] MEDS: LITHIUM 150 MG IR CAPSULE 300 MG PO (08:37)
[2025-03-30] MEDS: lamoTRIgine 100 MG TABLET 50 MG PO (08:38)
[2025-03-30] MEDS: FISH OIL 1,000 MG CAPSULE 1000 MG PO (08:39)
[2025-03-30 09:00] VITALS: BP 133/89; PULSE 55; RESP 15; TEMP 37; O2SAT 98
--- NOTE | 2025-03-30 09:10 | CM.DANOTE ---
Initial DCP Assessment Note Pt is a 54 yo female, resident of [place], presents with Abnormal EKG, SOB, Heart Flutters and admitted OBS for monitoring on telemetry, echo 03/30. PCP: Dr Heard, [facility] Payer: Malcom Herrera Reviewed chart, patient lives independently in [place] with spouse and children . Patient with significant mental health history, medication management through Dr Aranda, [facility] psychiatrist. Patient with diagnosis of: Bipolar Disorder, MDD, anxiety disorder, persistent mood disorder, PTSD. Patient has an outpatient appt with Dr Aranda scheduled 04/10/25- sees Dr Aranda approx. every 3 months. No barriers identified at this time to patient's safe discharge home w/family to assist; close outpatient f/u recommended. Patient has a follow up on May [address] Hoyt with [facility]. CM team will plan to follow clinical course closely in case any DC needs or concerns arise. OSCAR Vogel Discharge Planning/Care Management CM Discharge Assessment Start: 03/29/25 23:03 Freq: Status: Active Protocol: Document 03/30/25 09:08 ENID (Rec: 03/30/25 09:10 ENID [id number]) Discharge Planning Assessment Assigned [address] OSCAR Irizarry DPOA/Assigned Designee Name Bj Rosen () Contact Information [phone] Advance Directives? No History Provided By Patient,Medical Record Has Patient been admitted in last 30 No days? Prior Living Arrangements House Household Members spouse,children Type of transporation used prior to Drives own vehicle admit Independent with ADL's Yes Is patient alert and oriented? Yes Barriers to Discharge No Comment Home w/family anticipated. Discharge Plan Home Transportation Arrangement Family Referrals Initiated None needed
--- NOTE | 2025-03-30 09:52 | DI.ECHO.S_ITS ---
[facility] : : [address] : : [place] : : [id number] : : Phone: [phone] Echocardiogram Report + + :Name: CONRAD MÁRQUEZ Study Date: 03/30/2025 Height: 60 in : :Hospital ReadingLocation: Weight: 134 lb : : Gender: Female BSA: 1.6 m2 : :: 1970 Age: 54 yrs BP: 110/69 mmHg: :Reason For Study: ARRYTHMIA : :Ordering Physician: YN, : :EDEL STRONG Performed By: Tien Guillen : :Referring: EDEL ALEJANDRA MD : + + Interpretation Summary Normal sinus rhythm with frequent PVCs in the pattern of bigeminy.There are frequent short runs of nonsustained VT. Normal LV size and wall thickness. Normal wall motion and LV systolic function. Ejection fraction is 60-65%. Normal chamber sizes No significant valvular abnormalities. No prior echo. Procedure: A two-dimensional transthoracic echocardiogram with color flow and Doppler was performed. The study quality was technically good. There is no prior echocardiogram noted for this patient. BIGEMINY. Left Ventricle: The left ventricle is normal in size. There is normal left ventricular wall thickness. There is no ventricular septal defect visualized. The ejection fraction is estimated to be 60-65%. There are no focal wall motion abnormalities. Diastolic parameters suggest a relaxation abnormality of the left ventricle, consistent with probable normal filling pressures. Right Ventricle: The right ventricle is normal in size and function. Atria: Normal atrial size. There is no Doppler evidence for an interatrial shunt. Mitral Valve: The mitral valve leaflets appear mildly thickened, but open well. The mitral valve leaflets are mildly calcified. There is trace mitral regurgitation. Aortic Valve: The aortic valve is trileaflet. The aortic valve opens well. No aortic regurgitation is present. Tricuspid Valve: The tricuspid valve leaflets are thin and pliable. There is trace tricuspid regurgitation. Pulmonic Valve: The pulmonic valve is not well visualized. There is trace pulmonic regurgitation. Great Vessels: The aortic root is normal size. The dimensions of the ascending aorta are normal. The pulmonary artery is normal size. The IVC is dilated (diameter is greater than 2.1 cm) yet it collapses greater than 50% with a sniff. This suggests a right atrial pressure of 8 mm Hg. Pericardium/ Pleura There is no pericardial effusion. There is no pleural effusion. MMode/2D Measurements & Calculations LVIDd: 4.2 cm LVOT diam: 2.1 cm LVIDs: 3.2 cm Ao root diam: 3.0 cm FS: 25.0 % asc Aorta Diam: 3.4 cm EPSS: 0.40 cm IVSd: 1.0 cm LVPWd: 0.86 cm LV fowler. diameter/BSA (cm/m^2): 2.7 LV sys. diameter/BSA (cm/m^2): 2.0 LA A2 area: 16.2 cm2 RA long axis: 5.0 cm LA A4 area: 19.3 cm2 RA area: 17.4 cm2 LA length (vol): 5.6 cm RA vol: 52.2 ml LA vol: 47.2 ml RA : 33.1 ml/m2 LA vol index: 30.0 ml/m2 IVC diam: 2.2 cm RVD1 (basal): 3.6 cm RVD2 (mid): 3.0 cm TAPSE: 3.1 cm Doppler Measurements & Calculations Ao V2 max: 172.6 cm/sec LVOT Max Pedro: 120.4 cm/sec Ao V2 mean: 117.3 cm/sec LV V1 max P.8 mmHg Ao max P.9 mmHg LV V1 VTI: 26.6 cm Ao mean P.2 mmHg OPAL(I,D): 2.4 cm2 Ao V2 VTI: 37.2 cm OPAL(V,D): 2.4 cm2 sev ratio: 0.72 OPAL indexed to BSA (cm^2/m^2): 1.5 MV E max pedro: 95.3 cm/sec TR max pedro: 297.3 cm/sec MV A max pedro: 113.6 cm/sec TR max P.4 mmHg MV E/A: 0.84 PA V2 max: 120.8 cm/sec Med Peak E' Pedro: 5.7 cm/sec PA V2 mean: 85.7 cm/sec E/E' med: 16.7 PA mean P.2 mmHg Lat Peak E' Pedro: 6.5 cm/sec PA pr(Accel): 32.8 mmHg E/E' lat: 14.6 E/e' average: 15.6 MV dec time: 0.24 sec SV(LVOT): 90.6 ml Electronically signed by: Betsy Simms M.D. on Reading Physician:03/30/2025 12:19 PM
--- NOTE | 2025-03-30 14:40 | PM.DS.1 ---
History of Present Illness History of Present Illness Date Patient Seen: 03/30/25 Time Patient Seen: 14:41 Chief complaint: Abnormal EKG, SOB, Heart Flutters Narrative: Per admitting provider, 54-year-old female with past medical history of hypothyroidism, insomnia, and psychiatric illness on lithium and presents with shortness of breath and palpitation. Per the patient's report over the last few weeks the patient started to have the symptoms. The patient was seen by her PCP and had an EKG done. Per report the patient was found to have PVCs and general rhythm. The patient however at that time was asymptomatic and was scheduled to see Dr. Hoyt with [facility] cardiology on May 18, 2025. However the patient started to have these pressure palpitation, shortness of breath over the last few days. The patient decided to come in today since her symptom worsens. Patient denies any chest pain, fever, chills, nausea, vomiting, diarrhea, coughing, dysuria or syncope. In the emergency room, the patient was hemodynamically stable. However on telemetry and EKG that shows sinus rhythm with very frequent PVCs almost bigeminal in nature. Comparing to EKG done on March 05, 2025 the pattern seems very similar although the PVC seems more frequent today. Her ER physician did check a lithium level which is back at 0.3. D-dimer is negative. TSH normal. Labs were relatively benign with also troponin less than 0.012. BNP 423. Chest x-ray shows no acute finding or signs of volume overload. The patient was given a liter of IV fluid. Cardiology Dr. Marinelli was consulted and recommended that we keep the patient here to monitor on telemetry overnight and obtain an echocardiogram in the morning evaluating for any signs of cardiomyopathy. If the patient has no event overnight on telemetry and is hemodynamically stable with relatively normal echocardiogram the patient can be discharged home and to follow-up with the appointment she has with cardiology on May 18, 2025. However if there is any event or abnormality in echocardiogram or telemetry can consider reconsulting cardiology in the morning. Discharge Providers Provider Date of admission: 03/29/25 22:59 Discharge Date: 03/30/25 Primary care physician: Laci Bonilla MD Discharge provider: Tereso Kraft DO Summary Hospital Course Discharge Diagnosis: Frequent PVCs with bigeminal pattern, palpitations, POA Bipolar disorder, anxiety, PTSd Hypothyroidism. Insomnia. Hospital Course: This is a 54 year old female with Bipolar disorder, anxiety, PTSD who was admitted with bigeminy and frequent PVC who presented with palpitations. She was noted to have a high burden of PVC on telemetry, with frequent bigeminy and rare NSVT. vehicle monitor technician was unable to calculate her PVC burden. Echocardiogram was performed which showed a normal EF and no wall motion abnormalities. Patient has been decreasing her lithium. In review of her previous QtC interval on outside EKG, her QtC has already improved from >500 to 450 on tracing here after her dose reduction. Given high degree of PVC burden, I rediscussed with cardiology whom additionally recommended beta sheree and stress testing. Recommendations were reviewed with patient, including TTE results as well. She reported her mother had severe fatigue on metoprolol and she did not wish to initiate therapy at this time, fearing the fatigue may be worse than her palpitations. Outpatient stress test was additionally ordered at discharge for futher evaluation. She has cardiology follow up in April already scheduled. Time Spent with Patient Time spent: Greater than 30 minutes Exam Vital Signs (past 8 hours): - 03/30/25 09:00 Temperature 98.6 F Pulse Rate 55 L Respiratory Rate 15 Blood Pressure 133/89 Pulse Oximetry 98 Oxygen Flow Rate 0 Oxygen Delivery Method Room Air Oxygen Flow Rate 0 Narrative Exam Narrative: Gen: NAD CV: RRR no m/r/g Pulm: CTA B/l Ext: No edema Objective Labs 03/30/25 05:48 03/30/25 05:48 Labs: Laboratory Results - last 24 hr 03/29/25 03/30/25 18:14 05:48 WBC 9.2 8.1 RBC 4.66 4.49 Hgb 14.0 13.4 Hct 40.6 39.2 MCV 87.1 87.2 MCH 30.0 29.8 MCHC 34.4 34.2 RDW 12.3 12.4 Plt Count 268 240 Neut % (Auto) 72.1 69.0 Lymph % (Auto) 19.4 L 19.1 L [place] % (Auto) 6.2 9.2 Eos % (Auto) 1.7 L 2.1 Baso % (Auto) 0.6 0.6 Neut # (Auto) 6600 5600 Lymph # (Auto) 1800 1500 [place] # (Auto) 600 700 Eos # (Auto) 200 200 Baso # (Auto) 100 100 PT 10.7 INR 0.9 APTT 35 D-Dimer < 215 Sodium 139 139 Potassium 3.9 4.1 Chloride 106 110 H Carbon Dioxide 23 25 BUN 14 8 Creatinine 0.69 0.58 Estimated GFR > 60 > 60 BUN/Creatinine Ratio 20.3 13.8 Glucose 122 H 97 Calcium 9.0 8.7 Magnesium 1.9 Total Bilirubin 0.5 0.5 AST 31 24 ALT 24 20 Alkaline Phosphatase 75 61 Total Creatine Kinase 65 Troponin I < 0.012 NT-Pro-B Natriuret Pep 423 H Total Protein 7.0 6.1 L Albumin 4.2 3.6 Globulin 2.8 2.5 Albumin/Globulin Ratio 1.5 1.4 Lipase 214 TSH 0.842 [place] 0.3 L PFSH Medical History Hx of hiatal hernia Iron deficiency anemia Hypothyroid Surgical History History of Social History marital status: household members: spouse and children Smoking Status: Never smoker alcohol intake: current substance use type: does not use Discharge Plan Discharge Plan Patient Disposition: Home Provider Discharge Comment: You were admitted to the hospital with frequent PVC and palpitations. QtC from previous EKG has improved from >500 to 450 with decreased lithium dose. Ad Operations Intern 2nd recommendation to start metoprolol and perform stress testing. You did not wish to start metoprolol at this time. You heart ultrasound appeared normal today. I did order the outpatient stress test for you, please call as soon as possible after discharge to try and schedule this. Please follow up with cardiology as previously scheduled next month. Discharge orders & Medications Prescriptions: Continued fluticasone propionate [Flonase Allergy Relief] 50 mcg/actuation spray,suspension 1 spray intranasal DAILY Rx Instructions: administer into each nostril multivitamin Tablet 1 tab PO DAILY omega-3 fatty acids [Fish Oil Concentrate] 1,000 mg capsule 1,000 mg PO DAILY cholecalciferol (vitamin D3) 25 mcg (1,000 unit) capsule 25 mcg PO DAILY melatonin 1 mg tablet 3 mg PO BEDTIME levothyroxine 125 mcg capsule 125 mcg PO DAILY lithium carbonate 150 mg capsule 150 mg PO QPM Qty: 90 3RF zolpidem 5 mg tablet 5 mg PO BEDTIME PRN (Reason: insomnia) Qty: 90 0RF lithium carbonate 300 mg capsule 300 mg PO QAM Qty: 90 3RF paroxetine HCl 10 mg tablet 10 mg PO DAILY Qty: 7 0RF lamotrigine [Lamictal] 25 mg tablet 50 mg PO DAILY Qty: 180 1RF bupropion HCl 100 mg tablet sustained-release 12 hr 50 mg PO DAILY Qty: 60 3RF paroxetine HCl 10 mg/5 mL suspension 2.5 mg PO DAILY Qty: 250 2RF Rx Instructions: patient to provide Follow up/Referrals: Laci Bonilla MD [Primary Care Provider] - Other Ambulatory Orders: NM raina perf SPECT rest & str (Stat) Timeframe: 1 Week Facility: [facility] - Location: Radiology Ordered By: Tereso Kraft Diet/Activity/Treatments Diet: Diet as Tolerated and Regular Activity: As tolerated, no restrictions. Visit Report/Discharge Packet Instructions: Premature Ventricular Beats, Metoprolol Stand Alone Forms: Patient Portal/API, Stroke Signs & Symptoms Discharge Data Primary Care Provider: Laci Bonilla Attending Provider: Danny Villanueva Admit Date/Time: 03/29/25 22:59
--- NOTE | 2025-03-30 14:44 | PC.NURSE ---
Pt PIV removed, pt tolerated well. Provided education on follow ups and referrals. Pt stated all questions answered. Retrieved pt medications from pharmacy. All belongings with pt and pt's spouse. Pt ambulated per her request to POV escorted by spouse.
== END 2025-03-30 14:44 | disposition home or self-care (01) ==
LOC: ED 20:33 → AC 22:59
PROVIDERS: Emergency Medicine; Admitting Provider Internal Medicine; Emergency Provider Emergency Medicine; PCP Family Medicine; Referring Provider Emergency Medicine; Visit Provider Internal Medicine
DX: I49.3 Ventricular premature depolarization (principal); R00.2 Palpitations; R00.8 Other abnormalities of heart beat; E03.9 Hypothyroidism, unspecified; G47.00 Insomnia, unspecified; F31.9 Bipolar disorder, unspecified; F41.9 Anxiety disorder, unspecified; F43.10 Post-traumatic stress disorder, unspecified; Z79.890 Hormone replacement therapy
CPT/HCPCS: 36415; 71045; 80053; 80178; 82550; 83690; 83735; 83880; 84443; 84484; 85025; 85379; 85610; 85730; 93005; 93306; 96360; 96361; 99284; G0378; A9270

== ENCOUNTER → 2025-04-09 13:41 | Outpatient (CLI) | payer OTHER, SELFPAY ==
[2025-03-29 23:03] VITALS: BMI 26.2
--- NOTE | 2025-04-09 13:42 | DI.NM.S_ITS ---
PROCEDURE: NM ZOHRA PERF SPECT R&S PHARM Rest and pharmacological stress myocardial perfusion SPECT with gated imaging and ejection fraction RADIOPHARMACEUTICAL: 26.3 mCi Tc-99m tetrafosmin IV at rest and 25 mCi Tc-99m tetrafosmin IV at peak effect of pharmacological stress. [id number] was performed. INDICATIONS: palpitations, Bigeminy, frequent PVC TECHNIQUE: Radiopharmaceutical was injected at peak stress test, and also at rest. SPECT images were obtained. SPECT myocardial perfusion images were displayed in short axis, horizontal long axis, and vertical long axis views. Gated images were reviewed using [employer] software. COMPARISON: None. CARDIAC STRESS: A pharmacologic stress test was performed under the supervision of an attending staff, using an infusion of lexiscan 0.4mg IV X1. Hemodynamic data: There is normal blood pressure and heart rate response to pharmacologic stress. Symptoms: The none denied anginal chest pain. Aminophylline: none EKG: No diagnostic changes of ischemia; frequent PVCs during the study. FINDINGS: Raw data: There is good myocardial uptake of radiotracer. No significant motion artifacts. Rkui-qi-jdzzc ratio is 0.2 (normal is less than 0.38 for tetrafosmin tracer). Left ventricle function: Gated images demonstrate normal left ventricular wall thickening. No segmental wall motion abnormalities. No transient ischemic dilation; TID is 1.21 (normal less than 1.3). Left ventricle resting end diastolic volume is 69mL. Left ventricle stress ejection fraction is 75% ; normal range is above 45%. Myocardial perfusion: There is a moderately intense fixed mid to distal anterior wall defect that is probably breast attenuation artifact but old non-transmural infarction can't be excluded due to absence of prone images. No significant ischemia. SSS 1. IMPRESSION: Low risk, probably normal pharm nuclear stress from inducible ischemia standpoint. 1) There is a moderately intense fixed mid to distal anterior wall defect that is probably breast attenuation artifact but old non-transmural infarction can't be excluded due to absence of prone images. No significant ischemia. SSS 1. 2) Normal left ventricular size, wall motion, and systolic function (EF post stress 75%). 3) No angina during the study. 4) No diagnostic ST changes during the study. 5) Frequent PVCs duing the study. 6) No prior nuclear stress test available for comparison. Dictated by: Anna Weinberg MD on 04/27/2025 at 15:03 Approved by: Anna Weinberg MD on 04/27/2025 at 15:07
== END ==
PROVIDERS: PCP Family Medicine; Referring Provider Internal Medicine; Visit Provider Internal Medicine
DX: I49.8 Other specified cardiac arrhythmias (principal)
CPT/HCPCS: 78452; 93017; A9502; J2785

== ENCOUNTER 2025-04-11 13:07 | Emergency (ER) | payer OTHER, SELFPAY ==
[2025-03-29 23:03] VITALS: BMI 26.2
[2025-04-11 13:10] VITALS: BP 130/61; PULSE 38; RESP 20; TEMP 37; O2SAT 97
--- NOTE | 2025-04-11 13:20 | DI.RAD.S_ITS ---
PROCEDURE: XR CHEST 1V INDICATIONS: palpitations TECHNIQUE: One view of the chest was acquired. COMPARISON: [facility], CR, XR CHEST 1V, 03/29/2025, 17:35. FINDINGS: Surgical changes and devices: None. Lungs and pleura: Lungs are clear. No pleural effusions or pneumothorax. Mediastinum: Mediastinal contours appear normal. Heart size is normal. Bones and chest wall: No suspicious bony lesions. Overlying soft tissues appear unremarkable. IMPRESSION: No acute cardiopulmonary abnormality is seen. Dictated by: Herman Berry M.D. on 04/11/2025 at 14:11 Approved by: Herman Berry M.D. on 04/11/2025 at 14:12
--- NOTE | 2025-04-11 13:20 | EKG_ITS ---
[address] [address] Test Date: 2025-04-11 Pat Name: Brooklyn Rosen Department: Room: Gender: Female Garment Sewer Hand: LYNNE : 1970 Requested By: Order Number: [id number] Reading MD: Alton Ross Measurements Intervals [place] Rate: 78 P: 39 WI: 144 QRS: 70 QRSD: 82 T: 89 QT: 412 QTc: 469 Interpretive Statements Sinus rhythm with frequent premature ventricular complexes in a pattern of bigeminy Electronically Signed On 04-12-2025 18:58:54 PDT by Alton Ross
--- NOTE | 2025-04-11 13:25 | ED.ARRPALP ---
HPI - Arrhythmia/Palpitations General Chief Complaint: Arrhythmia/Palpitations Stated Complaint: shortness of breathe Time Seen by Provider: 04/11/25 13:19 Mode of arrival: Ambulatory History of Present Illness HPI narrative: 54-year-old female with a history of hypothyroidism, psychiatric illness on lithium, yazminy presents to the emergency department for palpitations, she states that she was seen here recently admitted and discharged for similar symptoms, she is supposed to follow up with Cardiology on next week for the symptoms.She states that she is still having shortness of breath palpitations lightheadedness and increased fatigue since her discharge, she states that she is not having any headache visual disturbances fever chills nausea vomiting abdominal pain or any other GI/ symptoms. Related Data Home Medications ?Medication ?Instructions ?Recorded ?Confirmed cholecalciferol (vitamin D3) 25 25 mcg PO DAILY 01/30/21 03/30/25 mcg (1,000 unit) capsule fluticasone propionate 50 1 spray intranasal DAILY 01/30/21 03/29/25 mcg/actuation nasal spray,suspension (Flonase Allergy Relief) multivitamin 1 tab PO DAILY 01/30/21 03/30/25 omega-3 fatty acids 1,000 mg 1,000 mg PO DAILY 01/30/21 03/30/25 capsule (Fish Oil Concentrate) levothyroxine 125 mcg capsule 125 mcg PO DAILY 09/24/21 03/29/25 melatonin 1 mg tablet 3 mg PO BEDTIME 12/03/21 03/29/25 Previous Rx's ?Medication ?Instructions ?Recorded bupropion HCl 100 mg tablet,12 hr 50 mg (1/2 x 100 mg) PO DAILY #60 12/21/24 sustained-release ea lamotrigine 25 mg tablet (Lamictal) 50 mg (2 x 25 mg) PO DAILY #180 01/09/25 tabs lithium carbonate 150 mg capsule 150 mg PO QPM #90 caps 01/09/25 lithium carbonate 300 mg capsule 300 mg PO QAM #90 caps 01/09/25 paroxetine HCl 10 mg tablet 10 mg PO DAILY #7 tabs 01/09/25 zolpidem 5 mg tablet 5 mg PO BEDTIME PRN insomnia #90 01/09/25 tabs paroxetine HCl 10 mg/5 mL oral 2.5 mg (1.25 mL) PO DAILY #250 mL 01/12/25 suspension metoprolol succinate 25 mg 25 mg PO BEDTIME 1 month #30 tabs 04/11/25 tablet,extended release 24 hr Allergies Allergy/AdvReac Type Severity Reaction Status Date / Time No Known Drug Allergies Allergy Verified 04/11/25 13:10 Review of Systems Review of Systems Narrative: General: Denies fever, chills, weight loss HEENT: Denies headache, eye drainage, eye irritation, head trauma, sore throat, voice change Cardiovascular: Positive chest pain, palpitations, bradycardia Respiratory: Denies any shortness of breath, cough, wheeze, stridor GI/: Denies any abdominal pain, nausea, vomiting, diarrhea, bright red blood per rectum, melanotic stools, urinary frequency, urinary retention, dysuria, hematuria MSK: Denies any joint pain, muscle pains, swelling Skin: Denies any rashes, lesions, discoloration Neuro: Positive lightheadedness denies any headache,dizziness, fainting, weakness Psych: Denies SI/HI Patient History Medical History Hx of hiatal hernia Iron deficiency anemia Hypothyroid Surgical History History of Social History marital status: household members: spouse and children Smoking Status: Never smoker alcohol intake: current substance use type: does not use Smoking Status: Never smoker alcohol intake frequency: holidays/special occasions only Exam Narrative Exam Narrative: General: Cooperative, well-developed, not in acute distress HEENT: Normocephalic, atraumatic, PERRLA, normal sclera, eyelids normal Neck: Active full range of motion, atraumatic Chest: Normal to inspection, negative crepitus, no overlying erythema ecchymosis Respiratory: Normal respiratory effort, not in acute respiratory distress, clear to auscultation bilaterally negative cough, wheeze, tachypnea, rhonchi, rales Cardiology: positive arrythmia noted, no gallop, murmur, rubs GI/: No tenderness to palpation, soft, non rigid, normal to inspection, exam deferred MSK: Full active range of motion in all 4 extremities, atraumatic, no tenderness to palpation of any bony prominences Skin: No rashes or lesions noted Neuro: Alert awake oriented x3, moves all 4 extremities spontaneously, cranial nerves intact, able to answer all questions appropriately follows commands appropriately Psych: Cooperative, negative suicidal or homicidal ideations Initial Vital Signs Initial Vital Signs: Vital Signs Temperature 98.6 F 04/11/25 13:10 Pulse Rate 38 L 04/11/25 13:10 Respiratory Rate 20 04/11/25 13:10 Blood Pressure 130/61 04/11/25 13:10 Pulse Oximetry 97 04/11/25 13:10 Oxygen Delivery Method Room Air 04/11/25 13:10 Course Orders Ordered: ED Orders 04/11/25 13:20 XR chest 1V Stat EKG-12 Lead Stat 04/11/25 13:39 Complete Blood Count AUTO DIFF Stat Comprehensive Metabolic Panel Stat D Dimer Stat Free T4, Direct Thyroxine Stat Lipase Stat One [place] Stat MAG [Magnesium] Stat TSH [Thyroid Stimulating Hormone] Stat Troponin & CK Cardiac Panel Stat Discontinued Medications Sodium Chloride (Normal Saline 0.9%) 1,000 mls @ 1,000 mls/hr IV BOLUS ONE Stop: 04/11/25 14:18 Last Infusion: 04/11/25 15:44 Dose: Infused Documented By: Admin: 04/11/25 13:53 Dose: 1,000 mls/hr Documented By: Magnesium Sulfate (Magnesium Sulfate) 2 gm in 50 mls @ 150 mls/hr IV NOW ONE Stop: 04/11/25 13:38 Last Infusion: 04/11/25 14:14 Dose: Infused Documented By: Co-signed By: GEO Admin: 04/11/25 13:46 Dose: 150 mls/hr Documented By: Co-signed By: YOLIE Vital Signs Vital signs: Vital Signs - 8 hr 04/11/25 13:10 Temperature 98.6 F Pulse Rate 38 L Respiratory Rate 20 Blood Pressure 130/61 Pulse Oximetry 97 Oxygen Delivery Method Room Air MDM - Arrhythmia/Palpitations Differential Diagnosis Differential diagnosis: Likely palpitations, artial fibrillation, artial flutter, ventricular premature beats, supraventricular tachycardia, ventricular tachycardia and other (Electrolyte abnormality, ACS, pneumonia) Lab Data 04/11/25 13:39 04/11/25 13:39 Labs: Lab Results 04/11/25 Range/Units 13:39 WBC 7.3 (4.5-11.0) X10^3/uL RBC 4.73 (4.0-5.2) X10^6/uL Hgb 14.1 (12.0-16.0) g/dL Hct 41.6 (36-46) % MCV 87.8 (80-100) fL MCH 29.8 (26-34) PG MCHC 34.0 (30-36) % RDW 12.7 (11.6-14.8) % Plt Count 289 (150-400) X10^3/uL Neut % (Auto) 69.4 (50-75) % Lymph % (Auto) 19.3 L (25-40) % [place] % (Auto) 8.1 (3-14) % Eos % (Auto) 2.2 (2-4) % Baso % (Auto) 1.0 (0-2) % Neut # (Auto) 5100 (8190-7223) /uL Lymph # (Auto) 1400 (3277-0428) /uL [place] # (Auto) 600 (0-900) /uL Eos # (Auto) 200 (0-450) /uL Baso # (Auto) 100 (0-100) /uL D-Dimer < 215 (<500) ng/ml Sodium 139 (137-145) mmol/L Potassium 4.1 (3.4-5.1) mmol/L Chloride 108 H (98-107) mmol/L Carbon Dioxide 22 (22-32) mmol/L BUN 12 (7-17) mg/dL Creatinine 0.72 (0.52-1.04) mg/dL Estimated GFR > 60 (>60) mL/min BUN/Creatinine Ratio 16.7 (6-22) Glucose 125 H (70-99) mg/dL Calcium 9.0 (8.4-10.2) mg/dL Magnesium 2.0 (1.6-2.3) mg/dL Total Bilirubin 0.4 (0.2-1.3) mg/dL AST 26 (14-36) IU/L ALT 19 (<35) IU/L Alkaline Phosphatase 73 (38-126) U/L Total Creatine Kinase 83 (30-135) U/L Troponin I < 0.012 (0.01-0.034) ng/mL Total Protein 6.6 (6.3-8.2) g/dL Albumin 4.2 (3.5-5.0) g/dL Globulin 2.4 (1.7-4.1) g/dL Albumin/Globulin Ratio 1.8 (1.0-2.8) Lipase 139 (23-300) U/L TSH 0.867 (0.47-4.68) uIU/mL Free T4 1.09 (0.78-2.19) ng/dL One [place] < 0.2 L (0.6-1.2) mmol/L Imaging Data Chest x-ray: Radiologist's Impresson: [address] [address] Ultrasound Report Signed Patient: Caitlyn Salguero MR#: [id number] : 08/26/1996 Acct:[id number] Age/Sex: 28 / F Date of Service: 04/11/25 Loc: ED Accession Number: [id number] Procedure: US pelvic complete Ordering Provider: Tereso Coronel D.O. PROCEDURE: US PELVIC COMPLETE INDICATIONS: right sided pelvic pain, hx of torsion TECHNIQUE: Real-time scanning was performed of the pelvic organs, with image documentation. Additional endovaginal scanning was necessary due to incomplete visualization of the adnexal and endometrial structures by transabdominal scanning. COMPARISON: [facility], US PELVIC COMPLETE, 04/09/2025, 19:34. FINDINGS: Uterus: Uterus is anteverted and normal in size at 8.0 x 5.5 x 4.2 cm. The myometrium is homogeneous. The endometrium measures 5 mm combined thickness. Ovaries: Status post right oophorectomy. The left ovary measures 1.8 x 2.3 x 2.8 cm. A dominant left ovarian follicle measures 1.4 cm and is considered physiologic. Less than 12 follicles can be seen in the left ovary. No adnexal masses are seen. Other: No pathologic free abdominal or pelvic fluid. IMPRESSION: Status post right oophorectomy. No significant sonographic abnormality. ECG Data Interpretation: EKG interpreted ED physician sinus 78 beats per minute, bigeminy noted, QTC 469, nonspecific ST changes no STEMI MDM Narrative Medical decision making narrative: 54-year-old female with a past medical history of psychiatric disorder on lithium, hypothyroidism, bigeminy presenting for persistent palpitations lightheadedness dizziness, states that this is the same that brought her in a proximally 1 week ago. She states that she was admitted discharge and no instructed follow up with Cardiology, she states that her filling machine set up mechanic appointment is next week but states that her symptoms have persisted states that it is worse whenever she exerts herself but denies any actual chest pain, she is not on any blood thinners no trauma no falls, she presents due to the fact that she is worried that she can not ?wait until her filling machine set up mechanic appointment. She states that she is scheduled to follow with Dr. Chaudhary. Patient's lab work unremarkable troponin negative chest x-ray without any acute cardiopulmonary abnormality EKG still showing bigeminy no other abnormalities. Review of records did show patient had echo performed here without any acute findings 1545: Had discussion with Dr. Chaudhary (cardiology) reviewed the case and she is recommending 25 mg metoprolol succinate nightly no other recommendations intervention states can follow up for her scheduled appointment I had a discussion with the patient in regards to the recommendation, she states that she is very ?sensitive to all medication she states that she is going to try half of the dose initially she was given strict return precautions she verbalized understanding of this agrees to being discharged home with outpatient follow up Discharge Plan Departure Patient Disposition: Home Clinical Impression: Bigeminal rhythm Activity Restrictions/Additional Instructions: Please follow up with your filling machine set up mechanic for your scheduled appointment Please read the discharge instructions sheet carefully and bring all papers to all doctor follow-up visits, as it may contain information that your doctor may want to see. Disease processes change and evolve, if your symptoms worsen or if you develop any new symptoms that are concerning to you please return for evaluation. Your evaluation today does not show any evidence of any life-threatening/serious illnesses requiring admission to the hospital or surgery. Please follow-up with your doctor for re-evaluation in approximately 1 day. Seek immediate medical attention for any worrisome symptoms. *If you do not have a primary care provider please contact the [facility] Resource line at [phone]. They will ask some questions about your medical history and help get you set up with a doctor in the community. Prescriptions: New metoprolol succinate 25 mg tablet extended release 24 hr 25 mg PO BEDTIME 30 Days Qty: 30 0RF No Action fluticasone propionate [Flonase Allergy Relief] 50 mcg/actuation spray,suspension 1 spray intranasal DAILY Rx Instructions: administer into each nostril multivitamin Tablet 1 tab PO DAILY omega-3 fatty acids [Fish Oil Concentrate] 1,000 mg capsule 1,000 mg PO DAILY cholecalciferol (vitamin D3) 25 mcg (1,000 unit) capsule 25 mcg PO DAILY melatonin 1 mg tablet 3 mg PO BEDTIME levothyroxine 125 mcg capsule 125 mcg PO DAILY lithium carbonate 150 mg capsule 150 mg PO QPM Qty: 90 3RF zolpidem 5 mg tablet 5 mg PO BEDTIME PRN (Reason: insomnia) Qty: 90 0RF lithium carbonate 300 mg capsule 300 mg PO QAM Qty: 90 3RF paroxetine HCl 10 mg tablet 10 mg PO DAILY Qty: 7 0RF lamotrigine [Lamictal] 25 mg tablet 50 mg PO DAILY Qty: 180 1RF bupropion HCl 100 mg tablet sustained-release 12 hr 50 mg PO DAILY Qty: 60 3RF paroxetine HCl 10 mg/5 mL suspension 2.5 mg PO DAILY Qty: 250 2RF Rx Instructions: patient to provide Referrals: Laci Bonilla MD [Primary Care Provider, Medical] Stand Alone Forms: Patient Portal/API
[2025-04-11 13:43] LABS: Add Manual Diff / Slide Review NO; Basophils Absolute Auto 100 /uL (0-100); Eosinophils Absolute Auto 200 /uL (0-450); Eosinophils Percent Auto 2.2 % (2-4); Hematocrit 41.6 % (36-46); Hemoglobin 14.1 g/dL (12.0-16.0); Lymphocytes Absolute Auto 1400 /uL (1100-4500); Lymphocytes Percent Auto 19.3 % (25-40); Mean Corpuscular Hemoglobin 29.8 PG (26-34); Mean Corpuscular Volume 87.8 fL (80-100); Monocytes Absolute Auto 600 /uL (0-900); Monocytes Percent Auto 8.1 % (3-14); Neutrophils Absolute Auto 5100 /uL (1500-7000); Neutrophils Percent Auto 69.4 % (50-75); Platelet Count 289 X10^3/uL (150-400); Red Blood Cell Count 4.73 X10^6/uL (4.0-5.2); Red Cell Distribution Width 12.7 % (11.6-14.8); White Blood Cell Count 7.3 X10^3/uL (4.5-11.0)
[2025-04-11] MEDS: MAGNESIUM SULFATE 2 GM/50 ML PIGGYBACK IV (13:46)
[2025-04-11 13:48] VITALS: PULSE 83; RESP 45; O2SAT 96
[2025-04-11] MEDS: SODIUM CHLORIDE 0.9% 1,000 ML 1000 ML IV (13:53)
[2025-04-11 13:55] LABS: Alanine Aminotransferase 19 IU/L (<35); Albumin 4.2 g/dL (3.5-5.0); Albumin Globulin Ratio 1.8 (1.0-2.8); Alkaline Phosphatase 73 U/L (38-126); Aspartate Aminotransferase 26 IU/L (14-36); BUN Creatinine Ratio 16.7 (6-22); Bilirubin Total 0.4 mg/dL (0.2-1.3); Blood Urea Nitrogen 12 mg/dL (7-17); Carbon Dioxide 22 mmol/L (22-32); Chloride 108 mmol/L (98-107); Creatine Kinase 83 U/L (30-135); Estimated Glomerular Filt Rate > 60 mL/min (>60); Globulin 2.4 g/dL (1.7-4.1); Glucose 125 mg/dL (70-99); HEMOLYSIS < 15 (0-50); Lipase 139 U/L (23-300); Potassium 4.1 mmol/L (3.4-5.1); Sodium 139 mmol/L (137-145); Total Protein 6.6 g/dL (6.3-8.2)
[2025-04-11 13:57] LABS: D Dimer < 215 ng/ml (<500)
[2025-04-11 14:00] VITALS: PULSE 39; O2SAT 97
[2025-04-11 14:05] LABS: Troponin I < 0.012 ng/mL (0.01-0.034)
[2025-04-11 14:09] LABS: Lithium < 0.2 mmol/L (0.6-1.2)
[2025-04-11 14:28] LABS: Free T4, Direct Thyroxine 1.09 ng/dL (0.78-2.19)
[2025-04-11 14:30] VITALS: PULSE 67; RESP 25; O2SAT 97
[2025-04-11 14:42] LABS: Thyroid Stimulating Hormone 0.867 uIU/mL (0.47-4.68)
[2025-04-11 15:00] VITALS: PULSE 83; RESP 14; O2SAT 99
[2025-04-11 15:30] VITALS: BP 138/87; PULSE 79; RESP 14; O2SAT 100
== END 2025-04-11 16:18 | disposition home or self-care (01) ==
PROVIDERS: Emergency Provider Student in an Organized Health Care Education/Training Program; PCP Family Medicine
DX: I49.8 Other specified cardiac arrhythmias (principal); R06.02 Shortness of breath; R42 Dizziness and giddiness; R10.2 Pelvic and perineal pain
CPT/HCPCS: 36415; 71045; 80053; 80178; 82550; 83690; 83735; 84439; 84443; 84484; 85025; 85379; 93005; 96361; 96365; 99284; J3475

== ENCOUNTER 2025-04-29 13:49 | Emergency (ER) | payer OTHER, SELFPAY ==
[2025-03-29 23:03] VITALS: BMI 26.2
[2025-04-29] VITALS (10 sets, daily range): BP systolic 91–152; BP diastolic 65–75; PULSE 59–89; RESP 17–22; TEMP 36.6; O2SAT 93–99; BMI 25.7
--- NOTE | 2025-04-29 14:10 | ED.SOB ---
HPI - SOB/Dyspnea General Chief Complaint: Chest Pain Stated Complaint: SOB heart palpations Time Seen by Provider: 04/29/25 13:53 History of Present Illness HPI Narrative: 54-year-old female history of mood instability, bipolar disorder, anxiety, PTSD, on lithium with a history of bigeminy seen here on 04/11/25 diagnosed with arrhythmia palpitation sent home on metoprolol succinate presents today with ongoing chest palpitations for the past 5 weeks worse in the past 2 days. In fact she had a stress test done this past by Dr. Hoyt cardiology incident for outpatient Holter monitor as well which apparently all did not show any acute ischemia. Patient did not end up getting her metoprolol she was scared it would give her depression and low blood pressure. Patient denies fever, chills, nausea, vomiting, diaphoresis, sick contacts, radiating symptoms, short of breath at rest, and with activity. Other than what is stated 14 point review of system is negative Related Data Home Medications ?Medication ?Instructions ?Recorded ?Confirmed cholecalciferol (vitamin D3) 25 25 mcg PO DAILY 01/30/21 03/30/25 mcg (1,000 unit) capsule fluticasone propionate 50 1 spray intranasal DAILY 01/30/21 03/29/25 mcg/actuation nasal spray,suspension (Flonase Allergy Relief) multivitamin 1 tab PO DAILY 01/30/21 03/30/25 omega-3 fatty acids 1,000 mg 1,000 mg PO DAILY 01/30/21 03/30/25 capsule (Fish Oil Concentrate) levothyroxine 125 mcg capsule 125 mcg PO DAILY 09/24/21 03/29/25 melatonin 1 mg tablet 3 mg PO BEDTIME 12/03/21 03/29/25 Previous Rx's ?Medication ?Instructions ?Recorded bupropion HCl 100 mg tablet,12 hr 50 mg (1/2 x 100 mg) PO DAILY #60 12/21/24 sustained-release ea lamotrigine 25 mg tablet (Lamictal) 50 mg (2 x 25 mg) PO DAILY #180 01/09/25 tabs lithium carbonate 150 mg capsule 150 mg PO QPM #90 caps 01/09/25 lithium carbonate 300 mg capsule 300 mg PO QAM #90 caps 01/09/25 paroxetine HCl 10 mg tablet 10 mg PO DAILY #7 tabs 01/09/25 paroxetine HCl 10 mg/5 mL oral 2.5 mg (1.25 mL) PO DAILY #250 mL 01/12/25 suspension metoprolol succinate 25 mg 25 mg PO BEDTIME 1 month #30 tabs 04/11/25 tablet,extended release 24 hr zolpidem 5 mg tablet 5 mg PO BEDTIME PRN insomnia #90 04/24/25 tabs Allergies Allergy/AdvReac Type Severity Reaction Status Date / Time No Known Drug Allergies Allergy Verified 04/29/25 14:14 Review of Systems Review of Systems ROS Unobtainable: All systems reviewed & are unremarkable except as noted in HPI and below Patient History Medical History Hx of hiatal hernia Iron deficiency anemia Hypothyroid Surgical History History of Social History marital status: household members: spouse and children Smoking Status: Never smoker alcohol intake: current substance use type: does not use alcohol intake frequency: holidays/special occasions only Exam Narrative Exam Narrative: GENERAL: [54] year old patient appears stated age. Well-developed patient, in mild distress. HEAD: Atraumatic. Normocephalic. EYES: Pupils equal round and reactive. Extraocular motions intact. No scleral icterus. No injection or drainage. ENT: Nose without bleeding, purulent drainage. Throat without erythema, tonsillar hypertrophy or exudate. Airway patent. NECK: Trachea midline. Non tender CARDIOVASCULAR: Regular rate and rhythm without murmurs, gallops, or rubs. RESPIRATORY: Clear to auscultation. Breath sounds equal bilaterally. No wheezes, rales, or rhonchi. GASTROINTESTINAL: Abdomen soft, non-tender, nondistended. EXTREMITIES: No edema or joint tenderness. BACK: Nontender without deformity or crepitance. No flank tenderness. NEURO: AOx3. GCS 15 nonfocal neuro exam SKIN: No rash or erythema of visible areas Initial Vital Signs Initial Vital Signs: Vital Signs Pulse Rate 59 L 04/29/25 14:01 Blood Pressure 152/71 H 04/29/25 14:01 Pulse Oximetry 99 04/29/25 14:01 Course Orders Ordered: ED Orders 04/29/25 14:09 Complete Blood Count AUTO DIFF Stat Comprehensive Metabolic Panel Stat Lipase Stat [place] Stat Magnesium Stat NT-proBNP (BNP-Adult 18+) Stat PTT Partial Thromboplastin Jac Stat Prothrombin Time INR Stat TSH [Thyroid Stimulating Hormone] Stat Troponin & CK Cardiac Panel Stat 04/29/25 14:19 XR chest 1V Stat EKG-12 Lead Stat Discontinued Medications Aspirin (Aspirin 81 Mg Chew Tab) 324 mg PO NOW ONE Stop: 04/29/25 14:20 Last Admin: 04/29/25 14:33 Dose: Not Given Documented By: SB Vital Signs Vital signs: Vital Signs - 8 hr 04/29/25 14:01 04/29/25 14:01 04/29/25 14:14 Temperature 97.9 F Pulse Rate 59 L 66 Respiratory Rate 22 Blood Pressure 152/71 H 152/71 H Pulse Oximetry 99 97 Oxygen Delivery Method Room Air 04/29/25 14:30 04/29/25 14:31 04/29/25 14:31 Temperature Pulse Rate 78 81 Respiratory Rate Blood Pressure 91/75 Pulse Oximetry 97 98 Oxygen Delivery Method 04/29/25 14:58 04/29/25 14:58 04/29/25 15:00 Temperature Pulse Rate 74 76 Respiratory Rate 20 17 Blood Pressure 127/68 Pulse Oximetry 99 98 Oxygen Delivery Method Room Air 04/29/25 15:00 04/29/25 15:30 04/29/25 15:31 Temperature Pulse Rate 85 Respiratory Rate Blood Pressure 137/69 149/65 H Pulse Oximetry 93 Oxygen Delivery Method 04/29/25 15:31 04/29/25 15:39 Temperature Pulse Rate 85 Respiratory Rate 22 Blood Pressure Pulse Oximetry 95 Oxygen Delivery Method MDM - SOB/Dyspnea Lab Data 04/29/25 14:09 04/29/25 14:09 Labs: Lab Results 04/29/25 Range/Units 14:09 WBC 9.4 (4.5-11.0) X10^3/uL RBC 4.93 (4.0-5.2) X10^6/uL Hgb 14.7 (12.0-16.0) g/dL Hct 43.3 (36-46) % MCV 87.9 (80-100) fL MCH 29.8 (26-34) PG MCHC 33.9 (30-36) % RDW 12.7 (11.6-14.8) % Plt Count 256 (150-400) X10^3/uL Neut % (Auto) 79.0 H (50-75) % Lymph % (Auto) 11.9 L (25-40) % [place] % (Auto) 6.8 (3-14) % Eos % (Auto) 1.5 L (2-4) % Baso % (Auto) 0.8 (0-2) % Neut # (Auto) 7400 H (4108-8863) /uL Lymph # (Auto) 1100 (5441-0602) /uL [place] # (Auto) 600 (0-900) /uL Eos # (Auto) 100 (0-450) /uL Baso # (Auto) 100 (0-100) /uL PT 11.5 (9.4-12.5) SECONDS INR 1.0 (0.9-1.3) APTT 35 (25.1-36.5) SECONDS Sodium 137 (137-145) mmol/L Potassium 3.7 (3.4-5.1) mmol/L Chloride 106 (98-107) mmol/L Carbon Dioxide 25 (22-32) mmol/L BUN 12 (7-17) mg/dL Creatinine 0.65 (0.52-1.04) mg/dL Estimated GFR > 60 (>60) mL/min BUN/Creatinine Ratio 18.5 (6-22) Glucose 150 H (70-99) mg/dL Calcium 9.1 (8.4-10.2) mg/dL Magnesium 1.8 (1.6-2.3) mg/dL Total Bilirubin 0.4 (0.2-1.3) mg/dL AST 27 (14-36) IU/L ALT 21 (<35) IU/L Alkaline Phosphatase 81 (38-126) U/L Total Creatine Kinase 64 (30-135) U/L Troponin I < 0.012 (0.01-0.034) ng/mL NT-Pro-B Natriuret Pep 445 H (<125) pg/mL Total Protein 6.6 (6.3-8.2) g/dL Albumin 4.1 (3.5-5.0) g/dL Globulin 2.5 (1.7-4.1) g/dL Albumin/Globulin Ratio 1.6 (1.0-2.8) Lipase 138 (23-300) U/L TSH 3.66 D (0.47-4.68) uIU/mL [place] 0.4 L (0.6-1.2) mmol/L Imaging Data Chest x-ray: Radiologist's Impression: [address] [address] XRay Report Signed Patient: Brooklyn Rosen MR#: [id number] : 1970 Acct:[id number] Age/Sex: 54 / F Date of Service: 04/29/25 Loc: ED Accession Number: [id number] Procedure: XR chest 1V Ordering Provider: Brayan Acharya D.O. PROCEDURE: XR CHEST 1V INDICATIONS: Chest Pain TECHNIQUE: One view of the chest was acquired. COMPARISON: [facility], CR, XR CHEST 1V, 04/11/2025, 13:32. [facility], CR, XR CHEST 1V, 03/29/2025, 17:35. FINDINGS: Surgical changes and devices: None. Lungs and pleura: Lungs are clear. No pleural effusions or pneumothorax. Mediastinum: Mediastinal contours appear normal. Heart size is normal. Bones and chest wall: No suspicious bony lesions. Overlying soft tissues appear unremarkable. IMPRESSION: No acute cardiopulmonary abnormality is seen. ECG Data Interpretation: Sinus Rhythm PVCs HR 73 GA 156 QRS [address]-t wave change Unchanged from 04/11/25 MDM Narrative Medical decision making narrative: All lab work, vital signs, nurse triage note, medication list, previous ER visits, and all imaging studies reviewed. Chest x-ray showed no acute process. WBC 9.4 hemoglobin 14.7 platelet was 250 glucose 150 BUN creatinine are normal troponin less than 0.012 BNP 445 TSH 3.66 0.4 [place]. EKG sinus rhythm with multiple PVCs but no STT wave changes. Differential diagnosis includes anxiety, stress, electrolyte derangement, noncompliance with medication specifically metoprolol. Patient recently had stress test done this past that was normal per patient report. Patient will be follow up with Cardiology for Holter monitor. Discharge Plan Departure Patient Disposition: Home Clinical Impression: Heart palpitations Instructions: Arrhythmias Activity Restrictions/Additional Instructions: Return with new or worsening symptoms. Take your medicines as directed specifically metoprolol start tonight. Follow up with peel oven tender at your next scheduled appointment. Prescriptions: No Action fluticasone propionate [Flonase Allergy Relief] 50 mcg/actuation spray,suspension 1 spray intranasal DAILY Rx Instructions: administer into each nostril multivitamin Tablet 1 tab PO DAILY omega-3 fatty acids [Fish Oil Concentrate] 1,000 mg capsule 1,000 mg PO DAILY cholecalciferol (vitamin D3) 25 mcg (1,000 unit) capsule 25 mcg PO DAILY melatonin 1 mg tablet 3 mg PO BEDTIME levothyroxine 125 mcg capsule 125 mcg PO DAILY lithium carbonate 150 mg capsule 150 mg PO QPM Qty: 90 3RF lithium carbonate 300 mg capsule 300 mg PO QAM Qty: 90 3RF paroxetine HCl 10 mg tablet 10 mg PO DAILY Qty: 7 0RF lamotrigine [Lamictal] 25 mg tablet 50 mg PO DAILY Qty: 180 1RF bupropion HCl 100 mg tablet sustained-release 12 hr 50 mg PO DAILY Qty: 60 3RF paroxetine HCl 10 mg/5 mL suspension 2.5 mg PO DAILY Qty: 250 2RF Rx Instructions: patient to provide zolpidem 5 mg tablet 5 mg PO BEDTIME PRN (Reason: insomnia) Qty: 90 0RF metoprolol succinate 25 mg tablet extended release 24 hr 25 mg PO BEDTIME 30 Days Qty: 30 0RF Referrals: Laci Bonilla MD [Primary Care Provider, Medical] Stand Alone Forms: Patient Portal/API
--- NOTE | 2025-04-29 14:12 | EKG_ITS ---
[id number], [place] [address] Test Date: 2025-04-29 Pat Name: Brooklyn Rosen Department: Room: Gender: Female [employer] Consultant: ANURAG : 1970 Requested By: Order Number: [id number] Reading MD: Brayan Mcfarlane MD Measurements Intervals [place] Rate: 73 P: 41 MT: 156 QRS: 72 QRSD: 88 T: 111 QT: 384 QTc: 423 Interpretive Statements Sinus rhythm with premature supraventricular complexes and with frequent premature ventricular complexes Nonspecific ST abnormality NO SIGNIFICANT CHANGE FROM PRIOR TRACING Electronically Signed On 04-30-2025 7:25:09 PDT by Brayan Mcfarlane MD
--- NOTE | 2025-04-29 14:19 | DI.RAD.S_ITS ---
PROCEDURE: XR CHEST 1V INDICATIONS: Chest Pain TECHNIQUE: One view of the chest was acquired. COMPARISON: [facility], CR, XR CHEST 1V, 04/11/2025, 13:32. [facility], CR, XR CHEST 1V, 03/29/2025, 17:35. FINDINGS: Surgical changes and devices: None. Lungs and pleura: Lungs are clear. No pleural effusions or pneumothorax. Mediastinum: Mediastinal contours appear normal. Heart size is normal. Bones and chest wall: No suspicious bony lesions. Overlying soft tissues appear unremarkable. IMPRESSION: No acute cardiopulmonary abnormality is seen. Dictated by: Minal Wallis M.D. on 04/29/2025 at 14:38 Approved by: Minal Wallis M.D. on 04/29/2025 at 14:38
[2025-04-29 14:24] LABS: Add Manual Diff / Slide Review NO; Basophils Absolute Auto 100 /uL (0-100); Basophils Percent Auto 0.8 % (0-2); Eosinophils Absolute Auto 100 /uL (0-450); Eosinophils Percent Auto 1.5 % (2-4); Hematocrit 43.3 % (36-46); Hemoglobin 14.7 g/dL (12.0-16.0); Lymphocytes Absolute Auto 1100 /uL (1100-4500); Lymphocytes Percent Auto 11.9 % (25-40); Mean Corpuscular HGB Conc 33.9 % (30-36); Mean Corpuscular Hemoglobin 29.8 PG (26-34); Mean Corpuscular Volume 87.9 fL (80-100); Monocytes Absolute Auto 600 /uL (0-900); Monocytes Percent Auto 6.8 % (3-14); Neutrophils Absolute Auto 7400 /uL (1500-7000); Platelet Count 256 X10^3/uL (150-400); Red Blood Cell Count 4.93 X10^6/uL (4.0-5.2); Red Cell Distribution Width 12.7 % (11.6-14.8); White Blood Cell Count 9.4 X10^3/uL (4.5-11.0)
[2025-04-29 14:25] LABS: Prothrombin Time 11.5 SECONDS (9.4-12.5)
[2025-04-29 14:28] LABS: PTT Partial Thromboplastin Tim 35 SECONDS (25.1-36.5)
[2025-04-29 14:29] LABS: Alanine Aminotransferase 21 IU/L (<35); Albumin 4.1 g/dL (3.5-5.0); Albumin Globulin Ratio 1.6 (1.0-2.8); Alkaline Phosphatase 81 U/L (38-126); Aspartate Aminotransferase 27 IU/L (14-36); BUN Creatinine Ratio 18.5 (6-22); Bilirubin Total 0.4 mg/dL (0.2-1.3); Blood Urea Nitrogen 12 mg/dL (7-17); Calcium 9.1 mg/dL (8.4-10.2); Carbon Dioxide 25 mmol/L (22-32); Chloride 106 mmol/L (98-107); Creatine Kinase 64 U/L (30-135); Estimated Glomerular Filt Rate > 60 mL/min (>60); Globulin 2.5 g/dL (1.7-4.1); Glucose 150 mg/dL (70-99); HEMOLYSIS 20 (0-50); Lipase 138 U/L (23-300); Magnesium 1.8 mg/dL (1.6-2.3); Potassium 3.7 mmol/L (3.4-5.1); Sodium 137 mmol/L (137-145); Total Protein 6.6 g/dL (6.3-8.2)
[2025-04-29 14:34] LABS: Lithium 0.4 mmol/L (0.6-1.2)
--- NOTE | 2025-04-29 14:37 | PC.NURSE ---
This RN goes to medicate patient. Confirmed with Dr. Acharya to give 324 of aspirin as per protocol. Patient unsure of how medication will interact with other medications. Patient is worried about taking anything. Patient wonders if her medications in general are interacting with one another. This RN gives education on why aspirin is given and indicated. Patient declines at this time. This RN calls pharmacist January and asks if she can do a medication review with patient. Ramón Sin indicates she will and come see the patient.
[2025-04-29 14:41] LABS: NT-proBNP (BNP-Adult 18+) 445 pg/mL (<125); Troponin I < 0.012 ng/mL (0.01-0.034)
[2025-04-29 15:08] LABS: Thyroid Stimulating Hormone 3.66 uIU/mL (0.47-4.68)
== END 2025-04-29 16:25 | disposition home or self-care (01) ==
PROVIDERS: Emergency Provider Family Medicine; PCP Family Medicine
DX: R00.2 Palpitations (principal); R07.9 Chest pain, unspecified
CPT/HCPCS: 36415; 71045; 80053; 80178; 82550; 83690; 83735; 83880; 84443; 84484; 85025; 85610; 85730; 93005; 93010; 99283; 99284